=== PATIENT | female | born 1980 | race African-American/Black ===

== ENCOUNTER 2020-12-22 01:06 | Emergency (ER) | payer SELFPAY ==
--- OUTSIDE RECORDS SUMMARY | 2020-12-22 01:08 | XMS REPORT | Continuity of Care Document ---
:1980 Author Organization [facility] t Address [address] [place] [address] Care Team Providers Name Role Phone Doctor Unassigned, Name Attending Clinician Unavailable Problems This patient has no known problems. Allergies, Adverse Reactions, Alerts This patient has no known allergies or adverse reactions. Medications This patient has no known medications. Procedures This patient has no known procedures. Encounters Start End Encounter Admission Attending Care Care Encounter Source Date/Time Date/Time Type Type Clinicians Facility Department ID 2018-11-05 2018-11-05 Orders Doctor JACQUELYN [id number] 00:00:00 00:00:00 Only UnassignedTAYLA [id number] [place] [facility] [id number] Results This patient has no known results.
[2020-12-22 06:45] LABS: Absolute Lymphocytes (CBC) 2.6 K/uL (0.7-4.9); Basophils % 0.7 % (0-1.3); Hematocrit 26.6 % (36.0-45.0); Lymphocytes % 26.8 % (15.3-44.8); MPV 7.7 fL (7.6-11.3); RBC Red Blood Cell Count 3.58 M/uL (3.86-4.86)
[2020-12-22 06:55] LABS: Protime INR 0.97
[2020-12-22 07:06] LABS: Albumin 3.1 g/dL (3.4-5.0); Bilirubin Direct 0.1 mg/dL (0-0.2); Bilirubin Total 0.5 mg/dL (0.2-1.0); Protein, Total 7.8 g/dL (6.4-8.2)
--- NOTE | 2020-12-22 09:42 | RAD REPORT ---
EXAM DESCRIPTION: CT - Abdomen Pelvis W Contrast - 12/22/2020 9:11 am CLINICAL HISTORY: Abdominal pain COMPARISON: none. TECHNIQUE: Computed axial tomography of the abdomen pelvis was obtained. 100 cc Isovue-300 was admin istered intravenously. Oral contrast was not requested which limits evaluation of bowel. All CT scans are performed using dose optimization technique as appropriate and may include automated exposure control or mA/KV adjustment according to patient size. FINDINGS: The liver lies predominantly within the left abdomen. The stomach lies within the right ab domen. The liver is enlarged with diffuse fatty infiltration. Within the left lobe of the liver which mostly lies within the right abdomen is a low density area measuring approximately 17 x 8 x 9 (cc by AP by trans) centimeters. It extends to periphery of the liver. There is no subcapsular hematoma. No hemoperitoneum is noted. The pancreas, adrenals and kidneys appear unremarkable. 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 There are round nodules within the right upper quadrant measuri ng up to 2 centimeters probably represent splenosis 4.2 centimeter right ovarian cyst. No evidence of diverticulitis. Varices are present within the anterior subcutaneous. Azygos continuation of the IVC is present. A filter has been placed into the expected location of the IVC and below the level the renal veins. The IVC is in very small venous structure. IMPRESSION: The liver lies within predominantly the left abdomen. The stomach lies within the right abdomen. The the heart lies mostly within the left chest. 17 x 8 x 9 centimeter low-density area within the liver probably a laceration. Less likely of this re presents unusual appearing focal fatty infiltration. No subcapsular hematoma. No hemoperitoneum Remainder of the liver demonstrates fatty infiltration.
[2020-12-22 09:59] LABS: Hematocrit 26.2 % (36.0-45.0)
[2020-12-22] MEDS ORDERED: NA CHLORIDE 0.9% 1,000 ML ONE (10:01)
[2020-12-22] MEDS ORDERED: INSULIN -REGULAR HUMAN 50 UNIT/0.5 ML ML ONE (10:21)
--- NOTE | 2020-12-22 10:26 | RAD REPORT ---
EXAM DESCRIPTION: USExtrem Venous W Compress Bil12/22/2020 4:02 am CLINICAL HISTORY: Leg pain COMPARISON: none FINDINGS: The right common femoral, superficial femoral, popliteal and posterior tibial veins are c ompressible and demonstrate augmentation. Doppler demonstrates good flow. Echogenic material is present within left common femoral vein. The vein is partially compressible. Left superficial femoral, left popliteal left posterior tibial veins are patent. IMPRESSION: Thrombus within the left common femoral vein which appears subacute
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
[2020-12-22 12:17] VITALS: TEMP 97
[2020-12-22 12:23] VITALS: BP 171/90; O2SAT 99
== END 2020-12-22 12:09 | disposition short-term general hospital (02) ==
LOC: ER 01:06
DX: S36.113A Laceration of liver, unspecified degree, initial encounter (principal); I82.4Z2 Acute embolism and thrombosis of unspecified deep veins of left distal lower extremity; D64.9 Anemia, unspecified; V49.40XA Driver injured in collision with unspecified motor vehicles in traffic accident, initial encounter
CPT/HCPCS: 36415; 74177; 80048; 80076; 82947; 84703; 85014; 85018; 85025; 85610; 85730; 86850; 86900; 86901; 93970; 96361; 96374; 99285; J7030; Q9967

== ENCOUNTER 2021-03-25 01:11 | Emergency (ER) | payer SELFPAY ==
--- OUTSIDE RECORDS SUMMARY | 2021-03-25 01:14 | XMS REPORT | Continuity of Care Document ---
:1980 Author Organization [facility] t Address [address] [place] [address] Dr. Valles [address] [place] [address] Care Team Providers Name Role Phone Doctor [...] Date/Time Type Type Clinicians Facility Department ID 2020-12-22 2020-12-22 Emergency E [facility] MARIANNA [address] [facility] 12:11:00 12:11:00 2018-11-05 2018-11-05 Orders Doctor VALLADARES [id number] 00:00:00 00:00:00 Only Unassigned, TAYLA [id number] [place] [facility] [id number] Results This patient has no known results.
[2021-03-25 04:14] LABS: Urine Blood 3+ (Negative); Urine Glucose Negative (Negative); Urine Protein Trace (Negative)
[2021-03-25] MEDS ORDERED: ONDANSETRON 4 MG/2 ML VIAL ONE (04:44)
[2021-03-25] MEDS ORDERED: MORPHINE 2 MG/ML SYR ONE (04:44)
[2021-03-25] MEDS ORDERED: NA CHLORIDE 0.9% 1,000 ML ONE (04:44)
[2021-03-25 04:48] LABS: Absolute Lymphocytes (CBC) 3.3 K/uL (0.7-4.9); Basophils % 0.7 % (0-1.3); Hematocrit 28.1 % (36.0-45.0); Lymphocytes % 25.7 % (15.3-44.8); RBC Red Blood Cell Count 4.25 M/uL (3.86-4.86)
[2021-03-25 04:51] LABS: Protime INR 1.02
[2021-03-25 05:01] LABS: ALT/SGPT 40 U/L (12-78); AST/SGOT 29 U/L (15-37); Albumin 3.4 g/dL (3.4-5.0); Alkaline Phosphatase 155 U/L (45-117); BUN Blood Urea Nitrogen 16 mg/dL (7-18); Bicarbonate 26 mmol/L (21-32); Bilirubin Direct < 0.1 mg/dL (0-0.2); Bilirubin Total 0.3 mg/dL (0.2-1.0); Glucose Level 86 mg/dL (74-106); Lipase 56 U/L (73-393); Magnesium 1.9 mg/dL (1.8-2.4); NT PRO-BNP 64 pg/mL (<125); Potassium 3.6 mmol/L (3.5-5.1); Protein, Total 8.9 g/dL (6.4-8.2); Sodium Level 136 mmol/L (136-145); Troponin (Emerg Dept Use Only) < 0.02 ng/mL (0.0-0.045)
[2021-03-25] MEDS ORDERED: FENTANYL CITR 100 MCG/2 ML ONE (06:55)
[2021-03-25 07:09] LABS: Anisocytosis 1+; Blood Morphology Comment NOTED (NOT SEEN); Hypochromasia 1+; Platelet Estimate INCR; Poikilocytosis SLIGHT; Target Cells FEW
--- NOTE | 2021-03-25 07:58 | EKG ---
Test Date: 2021-03-25 Test Time: 04:28:44 [place] Worker: VALENTINO MEASUREMENT RESULTS: Intervals: Rate: 71 OH: 172 QRSD: 82 QT: 382 QTc: 415 [place]: P: 57 OH: 172 QRS: 67 T: 62 INTERPRETIVE STATEMENTS: Normal sinus rhythm Normal ECG No previous ECG available for comparison Electronically Signed On 03-25-21 07:57:28 CDT by oRb Mclean
--- NOTE | 2021-03-25 08:00 | RAD REPORT ---
EXAM DESCRIPTION: RAD - Chest Single View - 03/25/2021 3:09 am CLINICAL HISTORY: ABDOMINAL DISTENTION COMPARISON: None TECHNIQUE: AP portable chest image was obtained 03/25/2021 3:09 am . FINDINGS: Lungs are clear. Mild cardiomegaly is present without vascular engorgement. No measurable pleural effusion and no pneumothorax. No acute bony abnormality seen. No acute aortic findings suspec justin. IMPRESSION: No acute lung parenchymal process seen. Cardiomegaly without other findings of failure or volume overload.
[2021-03-25 08:48] LABS: White Blood Cell Scan OK (OK)
--- NOTE | 2021-03-25 14:29 | RAD REPORT ---
EXAM DESCRIPTION: CT - Abdomen Pelvis W Contrast - 03/25/2021 6:28 am CLINICAL HISTORY: The patient is 40 years old and is Female; ABD PAIN TECHNIQUE: Axial computed tomography images of the abdomen and pelvis with intravenous contrast. S agittal and coronal reformatted images were created and reviewed. This CT exam was performed using one or more of the following dose reduction techniques: automated exposure control, adjustment of t he mA and/or kV according to patient size, and/or use of iterative reconstruction technique. COMPARISON: CT of the abdomen and pelvis December 22, 2020 FINDINGS: LUNG BASES: Unremarkable. No mass. No consolidation. ABDOMEN: LIVER: The liver is midline. The liver is enlarged and fatty with areas of geographic fat atten uation. GALLBLADDER AND BILE DUCTS: No calcified stones. No ductal dilation. PANCREAS: No ductal dilation. No mass. SPLEEN: Multiple splenules are present within the right upper quadrant. ADRENALS: Unremarkable. No mass. KIDNEYS AND URETERS: Unremarkable. The kidneys enhance symmetrically. No obstructing renal or ure teral calculus is seen. No hydronephrosis or hydroureter. No perinephric fluid or stranding. STOMACH AND BOWEL: The stomach is within the right upper quadrant. The small bowel is relativel y normal in caliber. A moderate amount stool is present throughout colon. There is no bowel obstructi on. PELVIS: APPENDIX: The appendix is normal in caliber without surrounding inflammation. BLADDER: The bladder is nearly empty. REPRODUCTIVE: Unremarkable as visualized. ABDOMEN and PELVIS: INTRAPERITONEAL SPACE: Unremarkable. No free air. No significant fluid collection. BONES/JOINTS: No acute fracture. SOFT TISSUES: The soft tissues are normal. VASCULATURE: An infrarenal IVC filter is in place. A retroaortic left vein is noted. Azygous continuation of the IVC is noted. No abdominal aortic aneurysm. LYMPH NODES: Unremarkable. No enlarged lymph nodes. IMPRESSION: 1. No acute findings on this contrasted CT of the abdomen and pelvis to explain the pa tient's symptoms. 2. Chronic findings as detailed above. Electronically signed by: Giuliana Puente MD 03/25/2021 6:06 AM CDT Due to temporary technical issues with the PACS/Fluency reporting system, reports are being signed by the in house radiologists without review as a courtesy to insure prompt reporting. The interpreting radiologist is fully responsible for the content of the report.
--- NOTE | 2021-03-25 17:58 | ER ---
Nurse's Notes [facility] Name: Yair Tran Age: 40 yrs Sex: Female : 1980 Arrival Date: 03/25/2021 Time: 01:14 Bed 5 Private MD: Diagnosis: Other abdominal pain-left side;Nausea;Anemia, unspecified Presentation: 03/25 01:51 Chief complaint: Patient states: LLQ pain that started at 3 PM, denies burning with em urination, reports nausea but no vomiting. Coronavirus screen: Client denies travel out of the [place] in the last 14 days. Ebola Screen: Patient negative for fever greater than or equal to 101.5 degrees Fahrenheit, and additional compatible Ebola Virus Disease symptoms Patient denies exposure to infectious person. Patient denies travel to an Ebola-affected area in the 21 days before illness onset. No symptoms or risks identified at this time. Initial Sepsis Screen: Does the patient meet any 2 criteria? HR > 90 bpm. No. Patient's initial sepsis screen is negative. Does the patient have a suspected source of infection? No. Patient's initial sepsis screen is negative. Risk Assessment: Do you want to hurt yourself or someone else? Patient reports no desire to harm self or others. Onset of symptoms was March 25, 2021. 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 - Social history:: Smoking status: Patient denies any tobacco usage or history of. Screenin:33 Abuse screen: Denies threats or abuse. Nutritional screening: No deficits noted. ea Tuberculosis screening: No symptoms or risk factors identified. Fall Risk IV access (20 points). Assessment: 04:20 General: Appears uncomfortable, Behavior is appropriate for age. Pain: Complains of ea pain in left upper quadrant. Neuro: Level of Consciousness is awake, alert, obeys commands, Oriented to person, place, time. Respiratory: Airway is patent Respiratory effort is even, unlabored, Respiratory pattern is regular, symmetrical. Derm: Skin is pink, warm \T\ dry. 04:32 Reassessment: Patient and/or family updated on plan of care and expected duration. Pain ea level reassessed. Patient is alert, oriented x 3, equal unlabored respirations, skin warm/dry/pink. Pt taken to CT. 07:30 Reassessment: Patient appears in no apparent distress at this time. Patient and/or ph family updated on plan of care and expected duration. Pain level reassessed. Patient is alert, oriented x 3, equal unlabored respirations, skin warm/dry/pink. 09:13 Reassessment: Patient appears in no apparent distress at this time. Patient and/or ph family updated on plan of care and expected duration. Pain level reassessed. Patient is alert, oriented x 3, equal unlabored respirations, skin warm/dry/pink. Vital Signs: 01:51 BP 174 / 98; Pulse 97; Resp 16; Temp 98.5; Pulse Ox 99% on R/A; Weight 190.51 kg; em Height 5 ft. 9 in. (175.26 cm); Pain 10/10; 07:48 BP 181 / 87; Pulse 75; Resp 16; Pulse Ox 99% ; sv 09:00 BP 167 / 100; Pulse 76; Resp 18; Pulse Ox 98% on R/A; ph 01:51 Body Mass Index 62.02 (190.51 kg, 175.26 cm) em ED Course: 01:14 Patient arrived in ED. es 01:52 Triage completed. em 01:52 Arm band placed on. em 02:54 Garrett Nunes MD is Attending Physician. [facility] 03:09 XRAY Chest (1 view) In Process Unspecified. EDMS 03:43 Zoya Paula, RN is Primary Nurse. bs2 04:15 Inserted saline lock: 22 gauge in left forearm, using aseptic technique. Blood ds4 collected. 04:20 Patient has correct armband on for positive identification. Bed in low position. Call ea light in reach. 04:48 CT Abd/Pelvis - IV Contrast Only In Process Unspecified. EDMS 05:30 CBC Smear Scan Sent. bs2 05:30 Urine --Ancillary Sent. bs2 05:30 Urine --Ancillary (enter results) Sent. bs2 05:30 CBC with Automated Diff Sent. bs2 05:31 Basic Metabolic Panel Sent. bs2 05:31 CBC with Diff Sent. bs2 06:16 Garrett Lino PA is PHCP. cp 06:53 Primary Nurse role handed off by Zoya Paula RN mw2 07:10 Dyan Fernández RN is Primary Nurse. ph 09:13 Augustin Massey MD is Referral Physician. cp Administered Medications: 04:31 Drug: NS 0.9% 500 ml Route: IV; Rate: bolus; Site: right antecubital; ea 09:00 Follow up: Response: No adverse reaction; IV Status: Completed infusion ph 04:31 Drug: NS 0.9% 1000 ml Route: IV; Rate: 125 ml/hr; Site: right antecubital; ea 09:30 Follow up: Response: No adverse reaction; IV Status: Completed infusion ph 04:31 Drug: morphine 2 mg Route: IVP; Site: right antecubital; ea 05:30 Follow up: Response: No adverse reaction bs2 04:31 Drug: Zofran (Ondansetron) 4 mg Route: IVP; Site: right antecubital; ea 05:30 Follow up: Response: No adverse reaction bs2 06:39 Drug: fentaNYL (PF) 25 mcg Route: IVP; Site: right antecubital; bs2 07:15 Follow up: Response: No adverse reaction ph Outcome: 09:14 Discharge ordered by . cp 09:41 Patient left the ED. Signatures: Dispatcher [employer] Nancy Alegria RN RN sv Anderson, Corey, MD MD cha Salyer, Edna es Munoz, Edgar RN Ivis Mcmillan RN RN Law Toscano ds4 Dyan Fernández RN RN Garrett Lino PA PA cp Antunez, Elena, RN RN ea Westbrook, MyKena mw2 Zoya Paula RN RN bs2
--- NOTE | 2021-03-25 17:58 | EDPHYS ---
Physician Documentation [facility] Name: Yair Tran Age: 40 yrs Sex: Female : 1980 Arrival Date: 03/25/2021 Time: 01:14 Bed 5 Private MD: ED Physician Garrett Nunes HPI: 03/25 03:09 This 40 yrs old Black Female presents to ER via Ambulatory with complaints of Abdominal sophia Pain, Nausea. 03:09 The patient presents to the emergency department with nausea, vomiting, abdominal pain, sophia of the left upper quadrant. Onset: The symptoms/episode began/occurred yesterday. Possible causes: unknown. The symptoms are aggravated by nothing. The symptoms are alleviated by nothing. Associated signs and symptoms: The patient has no apparent associated signs or symptoms. Severity of symptoms: At their worst the symptoms were moderate in the emergency department the symptoms are unchanged. The patient has not experienced similar symptoms in the past. 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 - Social history:: Smoking status: Patient denies any tobacco usage or history of. ROS: 03:10 Constitutional: Negative for fever, chills, and weight loss, Eyes: Negative for injury, sophia pain, redness, and discharge, ENT: Negative for injury, pain, and discharge, Neck: Negative for injury, pain, and swelling, Cardiovascular: Negative for chest pain, palpitations, and edema, Respiratory: Negative for shortness of breath, cough, wheezing, and pleuritic chest pain, Back: Negative for injury and pain, : Negative for injury, bleeding, discharge, and swelling, MS/Extremity: Negative for injury and deformity, Skin: Negative for injury, rash, and discoloration, Neuro: Negative for headache, weakness, numbness, tingling, and seizure, Psych: Negative for depression, anxiety, suicide ideation, homicidal ideation, and hallucinations, Allergy/Immunology: Negative for hives, rash, and allergies, Endocrine: Negative for neck swelling, polydipsia, polyuria, polyphagia, and marked weight changes, Hematologic/Lymphatic: Negative for swollen nodes, abnormal bleeding, and unusual bruising. 03:10 Abdomen/GI: Positive for abdominal pain, of the left upper quadrant. Exam: 03:10 Constitutional: This is a well developed, well nourished patient who is awake, alert, sophia and in no acute distress. Head/Face: Normocephalic, atraumatic. Eyes: Pupils equal round and reactive to light, extra-ocular motions intact. Lids and lashes normal. Conjunctiva and sclera are non-icteric and not injected. Cornea within normal limits. Periorbital areas with no swelling, redness, or edema. ENT: Nares patent. No nasal discharge, no septal abnormalities noted. Tympanic membranes are normal and external auditory canals are clear. Oropharynx with no redness, swelling, or masses, exudates, or evidence of obstruction, uvula midline. Mucous membranes moist. Neck: Trachea midline, no thyromegaly or masses palpated, and no cervical lymphadenopathy. Supple, full range of motion without nuchal rigidity, or vertebral point tenderness. No Meningismus. Chest/axilla: Normal chest wall appearance and motion. Nontender with no deformity. No lesions are appreciated. Cardiovascular: Regular rate and rhythm with a normal S1 and S2. No gallops, murmurs, or rubs. Normal PMI, no JVD. No pulse deficits. Respiratory: Lungs have equal breath sounds bilaterally, clear to auscultation and percussion. No rales, rhonchi or wheezes noted. No increased work of breathing, no retractions or nasal flaring. Back: No spinal tenderness. No costovertebral tenderness. Full range of motion. Skin: Warm, dry with normal turgor. Normal color with no rashes, no lesions, and no evidence of cellulitis. MS/ Extremity: Pulses equal, no cyanosis. Neurovascular intact. Full, normal range of motion. Neuro: Awake and alert, GCS 15, oriented to person, place, time, and situation. Cranial nerves II-XII grossly intact. Motor strength 5/5 in all extremities. Sensory grossly intact. Cerebellar exam normal. Normal gait. Psych: Awake, alert, with orientation to person, place and time. Behavior, mood, and affect are within normal limits. 03:10 Abdomen/GI: Inspection: distension, that is moderate, Bowel sounds: normal, Palpation: moderate abdominal tenderness, in the left upper quadrant, Liver: no appreciated palpable abnormalities, Hernia: not appreciated. 04:38 ECG was reviewed by the Attending Physician. [facility] Vital Signs: 01:51 BP 174 / 98; Pulse 97; Resp 16; Temp 98.5; Pulse Ox 99% on R/A; Weight 190.51 kg; em Height 5 ft. 9 in. (175.26 cm); Pain 10/10; 07:48 BP 181 / 87; Pulse 75; Resp 16; Pulse Ox 99% ; sv 09:00 BP 167 / 100; Pulse 76; Resp 18; Pulse Ox 98% on R/A; ph 01:51 Body Mass Index 62.02 (190.51 kg, 175.26 cm) em MDM: 02:54 Patient medically screened. [facility] 03:10 Differential diagnosis: Nonspecific abd pain, gastritis, cholecystitis, pancreatitis, sophia diverticulitis, gastroenteritis, Cholelithiasis Inflammatory Bowel Disease Peptic Ulcer Ureterolithiasis. Data reviewed: vital signs, nurses notes, lab test result(s), EKG, radiologic studies, CT scan, plain films. Data interpreted: property assessment monitor: rate is 97 beats/min, rhythm is regular, Pulse oximetry: on room air is 99 %. Test interpretation: by ED physician or midlevel provider: ECG, plain radiologic studies. Counseling: I had a detailed discussion with the patient and/or guardian regarding: the historical points, exam findings, and any diagnostic results supporting the discharge/admit diagnosis, lab results, radiology results. 03/25 02:56 Order name: Basic Metabolic Panel [facility] 03/25 02:56 Order name: CBC with Diff [facility] 03/25 02:56 Order name: LFT's; Complete Time: 05:12 [facility] 03/25 07:03 Interpretation: Normal except: ALK 155; TP 8.9; GLOB 5.5; A/G 0.6. cp 03/25 02:56 Order name: Magnesium; Complete Time: 05:12 [facility] 03/25 07:23 Interpretation: Within normal limits: MG 1.9. cp 03/25 02:56 Order name: NT PRO-BNP; Complete Time: 05:12 [facility] 03/25 02:56 Order name: PT-INR; Complete Time: 05:12 [facility] 03/25 02:56 Order name: Troponin (emerg Dept Use Only); Complete Time: 05:12 [facility] 03/25 07:41 Interpretation: Within normal limits: TROPED < 0.02. 03/25 02:56 Order name: Lipase; Complete Time: 05:12 [facility] 03/25 07:04 Interpretation: Abnormal: LIP 56. 03/25 02:56 Order name: Urine Culture [facility] 03/25 02:56 Order name: Basic Metabolic Panel; Complete Time: 05:12 [facility] 03/25 07:05 Interpretation: Normal except: GFR 71. 03/25 02:56 Order name: CBC with Automated Diff; Complete Time: 09:02 [facility] 03/25 07:04 Interpretation: Normal except: WBC 12.70; HGB 8.7; HCT 28.1; MCV 66.0; MCH 20.4; MCHC cp 30.8; PLT 485; RDW 18.7; MPV 7.0; NEUT A 8.2. 03/25 04:13 Order name: Urine Dipstick-Ancillary; Complete Time: 04:44 [facility] 03/25 07:05 Interpretation: Normal except: UBLD 3+; UPROT Trace. 03/25 04:18 Order name: Urine --Ancillary (enter results) ds4 03/25 04:18 Order name: Urine --Ancillary; Complete Time: 07:03 [facility] 03/25 02:56 Order name: XRAY Chest (1 view); Complete Time: 08:05 [facility] 03/25 08:05 Interpretation: Report reviewed. 03/25 02:56 Order name: EKG; Complete Time: 02:57 [facility] 03/25 02:56 Order name: Cardiac monitoring; Complete Time: 04:31 [facility] 03/25 02:56 Order name: EKG - Nurse/Tech; Complete Time: 04:31 [facility] 03/25 02:56 Order name: IV Saline Lock; Complete Time: 04:17 [facility] 03/25 02:56 Order name: Labs collected and sent; Complete Time: 04:17 [facility] 03/25 02:56 Order name: O2 Per Protocol; Complete Time: 04:17 [facility] 03/25 02:56 Order name: O2 Sat Monitoring; Complete Time: 04:17 [facility] 03/25 02:56 Order name: CT Abd/Pelvis - IV Contrast Only [facility] 03/25 04:52 Order name: CBC Smear Scan; Complete Time: 09:02 [facility] 03/25 07:22 Interpretation: Reviewed. 03/25 06:36 Order name: CREATININE WHOLE BLOOD; Complete Time: 07:03 [facility] 03/25 02:56 Order name: Urine Dipstick-Ancillary (obtain specimen); Complete Time: 04:17 sophia 03/25 02:56 Order name: Urine Test (obtain specimen); Complete Time: 04:17 sophia EC:38 Rate is 71 beats/min. Rhythm is regular. QRS [place] is Normal. VT interval is normal. QRS sophia interval is normal. QT interval is normal. No Q waves. T waves are Normal. No ST changes noted. Clinical impression: Normal ECG and No evidence of ischemia. Interpreted by me. Reviewed by me. Administered Medications: 04:31 Drug: NS 0.9% 500 ml Route: IV; Rate: bolus; Site: right antecubital; ea 09:00 Follow up: Response: No adverse reaction; IV Status: Completed infusion ph 04:31 Drug: NS 0.9% 1000 ml Route: IV; Rate: 125 ml/hr; Site: right antecubital; ea 09:30 Follow up: Response: No adverse reaction; IV Status: Completed infusion ph 04:31 Drug: morphine 2 mg Route: IVP; Site: right antecubital; ea 05:30 Follow up: Response: No adverse reaction bs2 04:31 Drug: Zofran (Ondansetron) 4 mg Route: IVP; Site: right antecubital; ea 05:30 Follow up: Response: No adverse reaction bs2 06:39 Drug: fentaNYL (PF) 25 mcg Route: IVP; Site: right antecubital; bs2 07:15 Follow up: Response: No adverse reaction ph Disposition Summary: 03/25/21 09:14 Discharge Ordered Location: Home cp Problem: new cp Symptoms: have improved cp Condition: Stable cp Diagnosis - Other abdominal pain - left side cp - Nausea cp - Anemia, unspecified cp Followup: cp - With: Augustin Massey MD - When: 2 - 3 days - Reason: Recheck today's complaints Discharge Instructions: - Discharge Summary Sheet cp - Abdominal Pain, Adult cp - Anemia cp - Nausea, Adult cp Forms: - Medication Reconciliation Form cp - Thank You Letter cp - Antibiotic Education cp - Prescription Opioid Use cp - Work release form ph Prescriptions: - Zofran 4 mg Oral Tablet - take 1 tablet by ORAL route every 12 hours As needed; 20 tablet; Refills: 0, cp Product Selection Permitted - Cipro 500 mg Oral Tablet - take 1 tablet by ORAL route every 12 hours for 10 days; 20 tablet; Refills: 0, cp Product Selection Permitted - Metronidazole 500 mg Oral Tablet - take 1 tablet by ORAL route every 8 hours; 30 tablet; Refills: 0, Product cp Selection Permitted - dicyclomine 20 mg Oral Tablet - take 1 tablet by ORAL route 4 times per day; 30 tablet; Refills: 0, Product cp Selection Permitted Signatures: Dispatcher [employer] Garrett Covarrubias MD MD cha Munoz, Edgar, RN RN Garrett Kaur, Isabela Scanlon cp RN RN Zoya José RN RN bs2 Dyan Fernández RN ph
[2021-03-26 20:07] VITALS: TEMP 98.5
[2021-03-26 20:10] VITALS: BP 167/100; O2SAT 98
== END 2021-03-25 09:41 | disposition home or self-care (01) ==
LOC: ER 01:11
DX: R10.12 Left upper quadrant pain (principal); R11.0 Nausea; D64.9 Anemia, unspecified; Z86.718 Personal history of other venous thrombosis and embolism
CPT/HCPCS: 36415; 71045; 74177; 80048; 80076; 81003; 81025; 82565; 83690; 83735; 83880; 84484; 85025; 85610; 87086; 87088; 93005; J2270; J2405; J3010; J7030; Q9967

== ENCOUNTER 2021-03-27 15:21 | Inpatient (IN) | payer SELFPAY ==
--- OUTSIDE RECORDS SUMMARY | 2021-03-27 15:23 | XMS REPORT | Continuity of Care Document ---
:1980 Author Organization [facility] t Address [address] [place] [address] [address] [place] [address] Care Team Providers Name Role Phone Doctor [...] Facility Department ID 2020-12-22 2020-12-22 Emergency E [facility] [address] [facility] 12:11:00 12:11:00 2018-11-05 2018-11-05 Orders Doctor VALLADARES [id number] 10 00:00:00 00:00:00 Only Unassigned, TAYLA [id number] [place] [facility] [id number] Results This patient has no known results.
[2021-03-27 20:19] LABS: Basophils % 0.6 % (0-1.3); Hematocrit 29.3 % (36.0-45.0); Lymphocytes % 14.2 % (15.3-44.8); MPV 6.9 fL (7.6-11.3); RBC Red Blood Cell Count 4.47 M/uL (3.86-4.86)
[2021-03-27 20:37] LABS: Bilirubin Direct 0.2 mg/dL (0-0.2); Bilirubin Total 0.4 mg/dL (0.2-1.0); Potassium 3.5 mmol/L (3.5-5.1); Protein, Total 8.6 g/dL (6.4-8.2)
[2021-03-27 20:56] LABS: Blood Morphology Comment NOTED (NOT SEEN); Hypochromasia 2+; Platelet Estimate INCR; White Blood Cell Scan OK (OK)
[2021-03-27] MEDS ORDERED: ONDANSETRON 4 MG/2 ML VIAL ONE (21:07)
[2021-03-27] MEDS ORDERED: NA CHLORIDE 0.9% 1,000 ML ONE (21:07)
[2021-03-27] MEDS ORDERED: MORPHINE 4 MG/ML SYR ONE ×2 (21:07→22:40)
--- NOTE | 2021-03-27 21:25 | RAD REPORT ---
EXAM DESCRIPTION: CTAbdomen Pelvis W Contrast - 03/27/2021 9:09 pm CLINICAL HISTORY: Abdominal pain. ABD PAIN COMPARISON: <Comparisons> TECHNIQUE: Biphasic CT imaging of the abdomen and pelvis was performed with 100 ml non-ionic IV cont rast. All CT scans are performed using dose optimization technique as appropriate and may include automated exposure control or mA/KV adjustment according to patient size. FINDINGS: The lung bases are clear. Hepatic steatosis with areas of fatty sparing. Prior splenectomy with splenosis. No focal renal sandhya s. IVC filter noted. There is a small volume of free fluid large abdominal wall venous collateral in the left rectus sheath but increased adjacent fluid. Recanalized umbilical vein. Azygous continuation of the IVC is noted. No bowel obstruction. No fracture. No suspicious bony findings. IMPRESSION: Increased fullness in the left rectus sheath concerning for the development of a rectus sheath hematoma. There is also increased simple appearing free fluid in the abdomen. 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
--- NOTE | 2021-03-27 21:49 | EDPHYS ---
Physician Documentation [facility] Name: Yair Tran Age: 40 yrs Sex: Female : 1980 Arrival Date: 03/27/2021 Time: 15:23 Bed 6 Private MD: FIDEL Physician Garrett Nunes HPI: 03/27 21:27 This 40 yrs old Black Female presents to ER via Wheelchair with complaints of Abdominal kb Pain - diverticulitis flare. 21:27 The patient presents with abdominal pain in the left upper quadrant, in the left lower kb quadrant. Onset: The symptoms/episode began/occurred 3 day(s) ago. The symptoms do not radiate. Associated signs and symptoms: Pertinent positives: diarrhea, nausea. The symptoms are described as constant. Modifying factors: The symptoms are alleviated by nothing, the symptoms are aggravated by nothing. Severity of pain: At its worst the pain was moderate in the emergency department the pain is unchanged. The patient has not experienced similar symptoms in the past. The patient has not recently seen a physician. Pt reports left sided abd pain. States she was seen 2 days ago and diagnosed with diverticulitis. Pt has been taking prescribed antibiotics with no relief of pain. . Historical: - Allergies: 15:45 No Known Allergies; aa5 - PMHx: 15:45 DVT; aa5 - PSHx: 15:45 section; aa5 - Immunization history:: Client reports having NOT received the Covid vaccine. Flu vaccine is not up to date. - Social history:: Smoking status: Patient denies any tobacco usage or history of. ROS: 21:36 Constitutional: Negative for fever, chills, and weight loss. kb 21:36 Abdomen/GI: Positive for abdominal pain, nausea, diarrhea, Negative for vomiting. 21:36 All other systems are negative. Exam: 21:38 Head/Face: Normocephalic, atraumatic. ENT: Moist Mucous membranes Cardiovascular: kb Regular rate and rhythm with a normal S1 and S2. No gallops, murmurs, or rubs. No pulse deficits. Respiratory: Respirations even and unlabored. No increased work of breathing, no retractions or nasal flaring. Skin: Warm, dry with normal turgor. Normal color. MS/ Extremity: Pulses equal, no cyanosis. Neurovascular intact. Full, normal range of motion. Neuro: Awake and alert, GCS 15, oriented to person, place, time, and situation. Moves all extremities. Normal gait. Psych: Awake, alert, with orientation to person, place and time. Behavior, mood, and affect are within normal limits. 21:38 Constitutional: The patient appears alert, awake, uncomfortable. 21:38 Abdomen/GI: Inspection: scar(s), are noted in the suprapubic area, Bowel sounds: normal, Palpation: soft, in all quadrants, moderate abdominal tenderness, in the left upper quadrant and left lower quadrant. Vital Signs: 15:44 BP 156 / 102; Pulse 114; Resp 20 S; Temp 98.7(O); Pulse Ox 100% ; aa5 20:39 BP 165 / 94; Pulse 99; Resp 18; Pulse Ox 98% ; ea MDM: 19:53 Patient medically screened. kb 21:26 Data reviewed: vital signs, nurses notes. Data interpreted: Pulse oximetry: on room air kb is 98 %. Interpretation: normal. 21:40 Counseling: I had a detailed discussion with the patient and/or guardian regarding: the kb historical points, exam findings, and any diagnostic results supporting the discharge/admit diagnosis, lab results, radiology results, the need for further work-up and treatment in the hospital. Physician consultation: Richie Steven MD was contacted at 21:41, regarding consult, and will see patient in inpatient room. 21:48 Physician consultation: Mustapha BAZZI was contacted at 21:48, regarding admission, kb to the medical/surgical unit. patient's condition, and will see patient in ED. 03/27 19:48 Order name: Basic Metabolic Panel; Complete Time: 20:38 kb 03/27 19:48 Order name: CBC with Diff; Complete Time: 21:11 kb 03/27 19:48 Order name: Hepatic Function; Complete Time: 20:38 kb 03/27 19:48 Order name: Lipase; Complete Time: 20:38 kb 03/27 20:27 Order name: CBC Smear Scan; Complete Time: 21:11 EDNM 03/27 21:54 Order name: COVID-19 : Document "Date of Symptom Onset" if Symptomatic. tt3 03/27 21:54 Order name: CORONAVIRUS EDNM 03/27 23:18 Order name: SARS-COV-2 RT PCR EDNM 03/28 05:51 Order name: CBC with Automated Diff EDMS 03/28 06:06 Order name: Transferrin Sat/Iron Binding EDMS 03/28 06:06 Order name: Ferritin EDNM 03/28 06:15 Order name: Comprehensive Metabolic Panel EDMS 03/28 06:15 Order name: Magnesium EDMS 03/28 06:28 Order name: Sedimentation Rate, Westergren EDMS 03/27 19:48 Order name: IV Saline Lock; Complete Time: 20:10 kb 03/27 19:48 Order name: Labs collected and sent; Complete Time: 20:10 kb 03/27 20:37 Order name: CT Abd/Pelvis - IV Contrast Only; Complete Time: 21:30 kb 03/28 07:08 Order name: Procalcitonin EDNM 03/28 09:31 Order name: Diet Regular; Complete Time: 09:32 eb Administered Medications: 20:49 Drug: morphine 4 mg Route: IVP; Site: right forearm; ea 21:00 Follow up: Response: No adverse reaction ea 20:49 Drug: Zofran (Ondansetron) 4 mg Route: IVP; Site: right forearm; ea 21:00 Follow up: Response: No adverse reaction ea 20:49 Drug: NS 0.9% 1000 ml Route: IV; Rate: 1000 ml; Site: right forearm; ea 23:13 Follow up: Response: No adverse reaction; IV Status: Completed infusion; IV Intake: ea 1000ml 22:20 Drug: morphine 4 mg Route: IVP; Site: right forearm; ea 23:00 Follow up: Response: No adverse reaction; Marked relief of symptoms; Pain is decreased jb4 23:12 Drug: Zosyn (piperacillin-tazobactam) 3.375 grams Route: IVPB; Infused Over: 60 mins; ea Site: right forearm; 03/28 00:12 Follow up: Response: No adverse reaction; IV Status: Completed infusion; IV Intake: jb4 100ml Disposition: 16:04 Co-signature as Attending Physician, Garrett Nunes MD I agree with the assessment and sophia plan of care. Disposition Summary: 03/27/21 21:48 Hospitalization Ordered Hospitalization Status: Inpatient Admission kb Provider: Aden Sanders Condition: Stable kb Problem: new kb Symptoms: are unchanged kb Bed/Room Type: Standard kb Location: Telemetry/MedSurg (Inpatient)(03/28/21 12:11) dw Room Assignment: 204(03/28/21 12:11) dw Diagnosis - Rectus sheath hematoma kb - Elevated white blood cell count kb Forms: - Medication Reconciliation Form kb - SBAR form kb Signatures: Dispatcher [employer] EDSheron Hernandez FNP-C FNP-Ckb Woody, Diana RN RN Garrett Bernal MD MD cha Calderon, Audri RN RN aa5 Florence Hendrickson RN RN tl1 Isabela Schofield RN RN ea Bryson, James RN jb4 Corrections: (The following items were deleted from the chart) 03/27 22:41 21:48 Telemetry/MedSurg (Inpatient) kb tl1 22:41 21:48 kb tl1 03/28 12:11 03/27 22:41 [facility] ER HOLD tl1 dw 03/28 12:11 03/27 22:41 ERHOLD- tl1 dw
--- NOTE | 2021-03-27 21:49 | ER ---
Nurse's Notes [facility] Name: Yair Tran Age: 40 yrs Sex: Female : 1980 Arrival Date: 03/27/2021 Time: 15:23 Bed 6 Private MD: Diagnosis: Rectus sheath hematoma;Elevated white blood cell count Presentation: 03/27 15:44 Chief complaint: Patient states: was seen here 2 days ago and dx with diverticulitis, aa5 pt states "the pain is still bad and I think I am getting dehydrated now". Reports nausea, denies vomiting. Coronavirus screen: At this time, the client does not indicate any symptoms associated with coronavirus-19. Ebola Screen: Patient negative for fever greater than or equal to 101.5 degrees Fahrenheit, and additional compatible Ebola Virus Disease symptoms. Initial Sepsis Screen: Does the patient meet any 2 criteria? HR > 90 bpm. Does the patient have a suspected source of infection? Yes:. Risk Assessment: Do you want to hurt yourself or someone else? Patient reports no desire to harm self or others. Onset of symptoms was March 27, 2021. 15:44 Method Of Arrival: Wheelchair aa5 15:44 Acuity: MICHAEL 3 aa5 Historical: - Allergies: 15:45 No Known Allergies; aa5 - PMHx: 15:45 DVT; aa5 - PSHx: 15:45 section; aa5 - Immunization history:: Client reports having NOT received the Covid vaccine. Flu vaccine is not up to date. - Social history:: Smoking status: Patient denies any tobacco usage or history of. Screenin:05 Abuse screen: Denies threats or abuse. Nutritional screening: No deficits noted. ea Tuberculosis screening: No symptoms or risk factors identified. Fall Risk None identified. Assessment: 20:06 General: Appears in no apparent distress. Behavior is calm, cooperative, appropriate ea for age. Pain: Denies pain. Neuro: Level of Consciousness is awake, alert, obeys commands, Oriented to person, place, time. Respiratory: Airway is patent Respiratory effort is even, unlabored, Respiratory pattern is regular, symmetrical. Derm: Skin is pink, warm \\T\\ dry. 21:33 Reassessment: Patient and/or family updated on plan of care and expected duration. Pain ea level reassessed. Patient is alert, oriented x 3, equal unlabored respirations, skin warm/dry/pink. 22:12 Reassessment: Patient and/or family updated on plan of care and expected duration. Pain ea level reassessed. Patient is alert, oriented x 3, equal unlabored respirations, skin warm/dry/pink. Provider at bedside updating pt on plan of care. Vital Signs: 15:44 BP 156 / 102; Pulse 114; Resp 20 S; Temp 98.7(O); Pulse Ox 100% ; aa5 20:39 BP 165 / 94; Pulse 99; Resp 18; Pulse Ox 98% ; ea ED Course: 15:23 Patient arrived in ED. as 15:43 Arm band placed on. aa5 15:45 Triage completed. aa5 16:13 Garrett Lino PA is PHCP. cp 19:48 Sheron Feliciano FNP-C is PHCP. kb 19:48 Garrett Nunes MD is Attending Physician. kb 20:05 Isabela Schofield, RN is Primary Nurse. ea 20:05 Patient has correct armband on for positive identification. Bed in low position. Call ea light in reach. Side rails up X2. 20:05 Inserted saline lock: 20 gauge in right forearm, using aseptic technique. ea 21:09 CT Abd/Pelvis - IV Contrast Only In Process Unspecified. EDMS 21:48 Aden Sanders is Hospitalizing Provider. kb 22:12 No provider procedures requiring assistance completed. Patient admitted, IV remains in ea place. 03/28 10:23 Primary Nurse role handed off by Isabela Schofield, FIDEL sv 10:23 Deidre Sharma, FIDEL is Primary Nurse. sv Administered Medications: 03/27 20:49 Drug: morphine 4 mg Route: IVP; Site: right forearm; ea 21:00 Follow up: Response: No adverse reaction ea 20:49 Drug: Zofran (Ondansetron) 4 mg Route: IVP; Site: right forearm; ea 21:00 Follow up: Response: No adverse reaction ea 20:49 Drug: NS 0.9% 1000 ml Route: IV; Rate: 1000 ml; Site: right forearm; ea 23:13 Follow up: Response: No adverse reaction; IV Status: Completed infusion; IV Intake: ea 1000ml 22:20 Drug: morphine 4 mg Route: IVP; Site: right forearm; ea 23:00 Follow up: Response: No adverse reaction; Marked relief of symptoms; Pain is decreased jb4 23:12 Drug: Zosyn (piperacillin-tazobactam) 3.375 grams Route: IVPB; Infused Over: 60 mins; ea Site: right forearm; 03/28 00:12 Follow up: Response: No adverse reaction; IV Status: Completed infusion; IV Intake: jb4 100ml Intake: 03/27 23:13 IV: 1000ml; Total: 1000ml. ea 03/28 00:12 IV: 100ml; Total: 1100ml. jb4 Outcome: 03/27 21:48 Decision to Hospitalize by Provider. kb 03/28 13:16 Patient left the ED. hb Signatures: Dispatcher [employer] EDMS Sheron Feliciano, JLUIS SCHMIDT-Nancy Decker, RN RN Angela Alexander Audri RN RN aa5 Garrett Lino PA PA cp Baxter, Heather RN RN Christian Laurent RN RN jb4 Antunez, Elena, RN RN ea Corrections: (The following items were deleted from the chart) 03/27 15:45 15:44 Initial Sepsis Screen: Does the patient meet any 2 criteria? No. Patient's aa5 initial sepsis screen is negative. Does the patient have a suspected source of infection? No. Patient's initial sepsis screen is negative. aa5
--- NOTE | 2021-03-27 22:28 | P.HP ---
Certification for Inpatient Patient admitted to: Inpatient With expected LOS: >2 Midnights Patient will require the following post-hospital care: None Practitioner: I am a practitioner with admitting privileges, knowledge of patient current condition, hospital course, and medical plan of care. Services: Services provided to patient in accordance with Admission requirements found in Title 42 Section 412.3 of the Code of Federal Regulations Patient History Date of Service: 03/27/21 Reason for admission: Rectus sheath hematoma vs. abscess History of Present Illness: 40-year-old -Malaysian female with history of DVT status post IVC filter on chronic anticoagulation therapy presents emergency department for left lower quadrant abdominal pain. Patient was seen by ED provider 2 days prior for left lower quadrant pain, was discharged home on Cipro/Flagyl after CT scan was negative at that time. Patient with increasing pain over the course of last 48 hours. Patient reevaluated in the emergency department, labs significant for white blood cell count 20.9 with left shift hemoglobin 8.8 hematocrit 29.3, patient with chronic anemia CT scan abdomen pelvis demonstrates increased fullness in the left rectus sheath concerning for development of a rectus sheath hematoma versus abscess. ED provider consulted with general surgery who recommends n.p.o., admission with broad-spectrum antibiotics, hold Eliquis. 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 moist/pink, EOMI, Sclerae nonicteric Neck: Supple, 2+ carotid pulse no bruit, No LAD, Without JVD or thyroid abnorm ality Respiratory: Clear to auscultation bilaterally, Normal air movement Cardiovascular: Regular rate/rhythm, Normal S1 S2 Gastrointestinal: Normal bowel sounds, No tenderness Musculoskeletal: Tenderness (Moderate left upper quadrant, left lower quadrant abdominal tenderness without rebound or guarding) Integumentary: No rashes Neurological: Normal speech, Normal strength at 5/5 x4 extr, Normal tone, Normal affect Lymphatics: No axilla or inguinal lymphadenopathy - Studies Laboratory Data (last 24 hrs) 03/27/21 19:58: WBC 20.90 H* D, Hgb 8.8 L, Hct 29.3 L, Plt Count 564 H 03/27/21 19:58: Sodium 136, Potassium 3.5, BUN 9, Creatinine 1.02, Glucose 122 H, Total Bilirubin 0.4, AST 12 L, ALT 23, Alkaline Phosphatase 136 H, Lipase 26 L Assessment and Plan - Plan Assessment: Left-sided abdominal pain, leukocytosis secondary to rectus sheath hematoma versus abscess History of DVT status post IVC filter placement on chronic anticoagulation therapy Iron deficiency anemia Plan: Left-sided abdominal pain, leukocytosis secondary to rectus sheath hematoma vers us abscess: N.p.o., continue broad-spectrum IV antibiotics, surgery consulted, will hold patient's Eliquis continue with SCDs. As needed pain medications/antiemetics. Appreciate further input from general surgery. History of DVT status post IVC filter placement on chronic anticoagulation therapy: Hold Eliquis, continue with SCDs at this time. Iron deficiency anemia: Patient with history of KARLA, takes iron at home has had to have blood transfusion/iron infusion in the past. Will obtain KARLA labs. DVT PPX: SCDs Code status: Full Discharge Plan: Home Plan to discharge in: Greater than 2 days - Advance Directives Does patient have a Living Will: No Does patient have a Durable POA for Healthcare: No - Code Status/Comfort Care Code Status Assessed: Yes (Full code) Time Spent Managing Pts Care (In Minutes): 55
[2021-03-27] MEDS ORDERED: PIPERACIL/TAZO 3.375 GM VIAL IV ONE (22:40)
[2021-03-27] MEDS ORDERED: NA CHLORIDE 0.9% 100 ML ONE (22:41)
[2021-03-27] MEDS: NA CHLORIDE 0.9% 1,000 ML IV SCH (23:57)
[2021-03-27] MEDS ORDERED: MORPHINE 4 MG/ML SYR IV PRN (23:57)
[2021-03-28 01:08] VITALS: BMI 62.0
[2021-03-28] MEDS ORDERED: NA CHLORIDE 0.9% 1,000 ML ONE ×2 (01:16→11:26)
[2021-03-28] MEDS: MORPHINE 4 MG/ML SYR IV PRN ×4 (02:55→22:58)
[2021-03-28] MEDS: ACETAMINOPHEN 500 MG TAB PO PRN (04:18)
[2021-03-28] MEDS ORDERED: ACETAMINOPHEN 500 MG TAB ONE (04:37)
[2021-03-28 05:40] LABS: Absolute Lymphocytes (CBC) 2.8 K/uL (0.7-4.9); Basophils % 0.5 % (0-1.3); Hematocrit 25.8 % (36.0-45.0); Lymphocytes % 13.8 % (15.3-44.8); MPV 6.9 fL (7.6-11.3); RBC Red Blood Cell Count 3.91 M/uL (3.86-4.86)
[2021-03-28 05:51] LABS: ALT/SGPT 20 U/L (12-78); AST/SGOT 9 U/L (15-37); Albumin 2.7 g/dL (3.4-5.0); Alkaline Phosphatase 115 U/L (45-117); BUN Blood Urea Nitrogen 10 mg/dL (7-18); Bicarbonate 25 mmol/L (21-32); Bilirubin Total 0.4 mg/dL (0.2-1.0); Glucose Level 113 mg/dL (74-106); Magnesium 1.9 mg/dL (1.8-2.4); Potassium 3.6 mmol/L (3.5-5.1); Protein, Total 7.6 g/dL (6.4-8.2); Sodium Level 138 mmol/L (136-145)
[2021-03-28 06:06] LABS: Ferritin 14.3 ng/mL (8-388); Transferrin 247 mg/dL (200-360)
[2021-03-28] MEDS: PIPER/TAZO/NS 3.375gm 3.375 GM/100 ML BAG IVPB SCH ×2 (09:00→17:36)
[2021-03-28] MEDS ORDERED: PIPER/TAZO/NS 3.375gm 3.375 GM/100 ML BAG IVPB SCH (09:00)
[2021-03-28] MEDS: ONDANSETRON 4 MG/2 ML VIAL IV PRN (09:19)
[2021-03-28] MEDS ORDERED: ONDANSETRON 4 MG/2 ML VIAL ONE (09:37)
[2021-03-28] MEDS ORDERED: MORPHINE 4 MG/ML SYR ONE (09:37)
[2021-03-28] MEDS: NA CHLORIDE 0.9% 1,000 ML IV SCH (09:57)
--- NOTE | 2021-03-28 13:27 | CON ---
Date of Consultation: 03/27/2021 Reason For Consultation: Rectus sheath hematoma. History Of Present Illness: The patient is a 40-year-old female with a history of DVT with an IVC fi lter, on chronic anticoagulation therapy with Eliquis, presented 3 days ago with left lateral abdomin al wall pain, was seen by the emergency room, had a slight white count, and was treated with oral ant ibiotics and discharged from the ER; however, the patient had increasing pain over the next 2 days an d was admitted and had a white count of 20.9 and H and H was stable at 8.8 and 29.3. The rectus abdom inis had gotten slightly larger as far as the hematoma was concerned. There is no evidence of an abs cess at this time. Today, she is awake, alert. Pain is managed with parenteral pain management. No sore throat, runny nose, cough, headaches, or dizziness. No chest pain. No fever or chills. Review of Systems: Otherwise unremarkable. Past Medical History: DVT, following . Past Surgical History: x2 and IVC filter placement. Allergies: NONE. Social History: The patient used to smoke, does not smoke any more. Does not drink alcohol. Family History: Significant for diabetes in the mother. Physical Examination: Vital Signs: Her vitals are currently stable. Blood pressure is little elevated at 172/102. Her te mperature is now 100.6. General: She is awake, alert, and oriented x3. Head and Neck: Cranial nerves 2 through 12 are grossly within normal limits. No neck masses. No JV D. Throat clear. Neck supple. Chest: Clear. Heart: S1, S2. Abdomen: Soft, nondistended. Positive bowel sounds. In the left mid abdomen, there is tenderness o elias the rectus sheath. No peritonitis. Extremity: Adequately perfused. Nontender. Neuro: Nonfocal. Laboratory Data: White count is 20.1. H and H this morning are 7.8 and 25.8, platelets are 510. Ch emistry reviewed, procalcitonin is 0.08. CT of the abdomen and pelvis reviewed with the radiologist. It shows small volume of free fluid. Rule out abdominal wall venous collaterals in the left rectus sheath but increased adjacent fluid. Recannulized umbilical vein. Continuation of the IVC is noted . This is most consistent with hematoma. Assessment: Left rectus sheath hematoma. Recommendations: At this time, I do not think any intervention is needed. Parenteral pain managemen t, empiric antibiotics. The fluid has not coalesced into a drainable entity as of yet. Monitor the patient closely. If she clinically improves, she can be discharged in the next 24 to 48 hours. If s he does not improve, she may need intervention. /MODL Voice ID: [id number] Report ID: [id number]
--- NOTE | 2021-03-28 19:47 | P.PN ---
Subjective Date of Service: 03/28/21 Chief Complaint: Rectus sheath hematoma vs. abscess Patient complaining of pain in her mid abdomen. No fever. Physical Examination - Vital Signs Temperature: 98.7 F Blood Pressure: 136/74 Pulse: 100 Respirations: 18 Pulse Ox (%): 98 - Physical Exam General: Alert, In no apparent distress, Oriented x3, Obese HEENT: Mucous membr. moist/pink Neck: JVD not distended Respiratory: Clear to auscultation bilaterally, Normal air movement Cardiovascular: Regular rate/rhythm, Normal S1 S2 Gastrointestinal: Normal bowel sounds, Soft and benign, Non-distended, Tenderness (Mid-abdomen) Musculoskeletal: No swelling Integumentary: No rashes Neurological: Normal strength at 5/5 x4 extr - Studies Laboratory Data (last 24 hrs) 03/27/21 19:58: WBC 20.90 H* D, Hgb 8.8 L, Hct 29.3 L, Plt Count 564 H 03/27/21 19:58: Sodium 136, Potassium 3.5, BUN 9, Creatinine 1.02, Glucose 122 H, Total Bilirubin 0.4, AST 12 L, ALT 23, Alkaline Phosphatase 136 H, Lipase 26 L Assessment And Plan - Current Problems (Diagnosis) (1) Rectus sheath hematoma Current Visit: Yes Status: Acute (2) Leukocytosis Current Visit: Yes Status: Acute (3) History of DVT of lower extremity Current Visit: Yes Status: Acute (4) Morbid obesity due to excess calories Current Visit: Yes Status: Acute (5) Iron deficiency anemia Current Visit: Yes Status: Acute - Plan General surgery-Dr. Steven input appreciated. He recommend medical management has no drainable abscess at this time Continue IV antibiotics. Monitor CBC to follow leukocytosis. Pain management as needed. Monitor hemoglobin. Transfuse p.r.n. for hemoglobin less than 7. No report of melena or hematemesis. Eliquis is on hold.
[2021-03-29] MEDS: ACETAMINOPHEN 500 MG TAB PO PRN (00:53)
[2021-03-29] MEDS: PIPER/TAZO/NS 3.375gm 3.375 GM/100 ML BAG IVPB SCH ×3 (01:00→10:59)
[2021-03-29] MEDS: MORPHINE 4 MG/ML SYR IV PRN ×4 (04:59→21:39)
[2021-03-29 05:52] LABS: Basophils % 0.6 % (0-1.3); Hematocrit 24.5 % (36.0-45.0); Lymphocytes % 17.3 % (15.3-44.8); MPV 6.8 fL (7.6-11.3); RBC Red Blood Cell Count 3.73 M/uL (3.86-4.86)
[2021-03-29 06:23] LABS: Albumin 2.5 g/dL (3.4-5.0); Bilirubin Total 0.3 mg/dL (0.2-1.0); Magnesium 1.9 mg/dL (1.8-2.4); Potassium 3.9 mmol/L (3.5-5.1); Protein, Total 7.6 g/dL (6.4-8.2)
--- NOTE | 2021-03-29 08:49 | PN ---
Subjective: The patient is still having pain, but it is a little bit better. Objective: Vital Signs: Stable. She is afebrile. Abdomen: Shows tenderness in the left midquadrant. No peritonitis. Laboratory Data: H and H are stable. White count is coming down. Assessment: Rectus sheath hematoma. Recommendations: Continue IV antibiotics for the next 24 to 48 hours. Once the white count approach es normalization, then the patient could be discharged on oral antibiotics and probably restart antic oagulation if needed in 2 weeks. Follow with Hematology as an outpatient for further recommendations . Reconsult Surgery p.r.n. /MODL Voice ID: [id number] Report ID: [id number]
[2021-03-29] MEDS: NA CHLORIDE 0.9% 1,000 ML IV SCH ×2 (11:00→15:57)
--- NOTE | 2021-03-29 12:55 | P.PN ---
Subjective Date of Service: 03/29/21 Chief Complaint: Rectus sheath hematoma vs. abscess Patient still complaining of abdominal pain. She is tachycardia, blood pressure sometimes elevated. WBC count decreased only slightly No fever today. Physical Examination - Vital Signs Temperature: 99.1 F Blood Pressure: 153/70 Pulse: 92 Respirations: 20 Pulse Ox (%): 97 - Physical Exam General: In no apparent distress, Oriented x3, Obese Neck: JVD not distended Respiratory: Clear to auscultation bilaterally, Normal air movement Cardiovascular: Regular rate/rhythm, Normal S1 S2 Gastrointestinal: Soft and benign, Non-distended Musculoskeletal: No swelling Integumentary: No rashes, No erythema Neurological: Normal strength at 5/5 x4 extr Assessment And Plan - Current Problems (Diagnosis) (1) Rectus sheath hematoma Current Visit: Yes Status: Acute (2) Leukocytosis Current Visit: Yes Status: Acute (3) History of DVT of lower extremity Current Visit: Yes Status: Acute (4) Morbid obesity due to excess calories Current Visit: Yes Status: Acute (5) Iron deficiency anemia Current Visit: Yes Status: Acute (6) Sepsis Current Visit: Yes Status: Acute - Plan General surgery-Dr. Steven input appreciated. Continue medical management. IV cefepime and vancomycin. Check lactic acid as patient is flagging sepsis. Leukocytosis trending down. Pain management as needed. Monitor hemoglobin. Transfuse p.r.n. for hemoglobin less than 7. No report of melena or hematemesis. Patient reports heavy menses and that explained the iron deficiency anemia. Eliquis is on hold. She stopped taking Eliquis about 5 days ago. Hydrate with IV fluid.
[2021-03-29 16:30] LABS: Urine Appearance CLOUDY (Clear); Urine Blood 3+ (Negative); Urine Color Red (Yellow); Urine Glucose NEGATIVE (Negative); Urine Protein 2+ (Negative); Urine Specific Gravity 1.025 (1.005-1.030)
[2021-03-29 16:37] LABS: Urine Microscopic Reflex ORDER UMIC
[2021-03-29] MEDS: VANCOMYCIN 2 GM in NA CHLORIDE 0.9% 500 ML IVPB SCH (16:38)
[2021-03-29 16:41] LABS: Urine Bilirubin NEGATIVE (Negative)
[2021-03-29 16:57] LABS: Urine Bacteria <20 /HPF (<20); Urine RBC >50 /HPF (NONE SEEN)
[2021-03-29] MEDS: CEFEPIME/SWI 1gm 10 ML IV SCH (20:08)
[2021-03-29] MEDS ORDERED: POTASSIUM CL SA 10 MEQ TAB PO ONE (21:00)
[2021-03-29] MEDS ORDERED: CEFEPIME 1 GM/VIAL IV SCH (21:00)
[2021-03-29] MEDS ORDERED: IPRATROPIUM BROM 0.5MG/2.5ML NEB ONE (23:48)
[2021-03-29] MEDS ORDERED: ALBUTEROL 2.5 MG/3 ML NEB SOL NEB ONE (23:48)
[2021-03-30] MEDS: NA CHLORIDE 0.9% 1,000 ML IV SCH ×5 (01:57→22:04)
[2021-03-30] MEDS: VANCOMYCIN 2 GM in NA CHLORIDE 0.9% 500 ML IVPB SCH ×2 (02:36→15:15)
[2021-03-30] MEDS: MORPHINE 4 MG/ML SYR IV PRN ×4 (04:27→22:03)
[2021-03-30 06:13] LABS: Absolute Lymphocytes (CBC) 2.3 K/uL (0.7-4.9); Basophils % 0.8 % (0-1.3); Hematocrit 23.8 % (36.0-45.0); Lymphocytes % 15.6 % (15.3-44.8); MPV 6.6 fL (7.6-11.3); RBC Red Blood Cell Count 3.65 M/uL (3.86-4.86)
[2021-03-30 06:32] LABS: Albumin 2.5 g/dL (3.4-5.0); Bilirubin Total 0.4 mg/dL (0.2-1.0); Magnesium 1.8 mg/dL (1.8-2.4); Potassium 3.8 mmol/L (3.5-5.1); Protein, Total 7.6 g/dL (6.4-8.2)
[2021-03-30] MEDS: CEFEPIME/SWI 1gm 10 ML IV SCH ×2 (08:59→22:00)
--- NOTE | 2021-03-30 13:43 | P.PN ---
Subjective Date of Service: 03/30/21 Chief Complaint: Rectus sheath hematoma vs. abscess Patient states her abdominal pain is better today. No fever. WBC continue to trend down. Physical Examination - Vital Signs Temperature: 99.3 F Blood Pressure: 191/86 Pulse: 108 Respirations: 19 Pulse Ox (%): 95 - Physical Exam General: Alert, In no apparent distress, Obese HEENT: Mucous membr. moist/pink Respiratory: Clear to auscultation bilaterally, Normal air movement Cardiovascular: No edema, Regular rate/rhythm, Normal S1 S2 Gastrointestinal: Soft and benign, Non-distended, Tenderness (Mild tenderness in the periumbilical area) Musculoskeletal: No swelling Integumentary: No rashes Assessment And Plan - Current Problems (Diagnosis) (1) Rectus sheath hematoma Current Visit: Yes Status: Acute (2) Leukocytosis Current Visit: Yes Status: Acute (3) History of DVT of lower extremity Current Visit: Yes Status: Acute (4) Morbid obesity due to excess calories Current Visit: Yes Status: Acute (5) Iron deficiency anemia Current Visit: Yes Status: Acute (6) Sepsis Current Visit: Yes Status: Acute - Plan Continue current antibiotics. General surgery Dr. Cornell is following Leukocytosis trending down. Pain management as needed. Hemoglobin appears to be stable around 7 Transfuse p.r.n. for hemoglobin less than 7. No report of melena or hematemesis. Patient reports heavy menses and that explained the iron deficiency anemia. Eliquis is on hold. Continue IV hydration. Repeat imaging tomorrow to reassess abscess versus hematoma.
[2021-03-30] MEDS ORDERED: POTASSIUM CL SA 10 MEQ TAB PO ONE (15:00)
[2021-03-31] MEDS: VANCOMYCIN 2 GM in NA CHLORIDE 0.9% 500 ML IVPB SCH (03:00)
[2021-03-31] MEDS: MORPHINE 4 MG/ML SYR IV PRN ×3 (05:22→22:33)
[2021-03-31 05:43] LABS: Absolute Lymphocytes (CBC) 1.8 K/uL (0.7-4.9); Basophils % 0.2 % (0-1.3); Hematocrit 23.3 % (36.0-45.0); Lymphocytes % 13.5 % (15.3-44.8); MPV 7.1 fL (7.6-11.3); RBC Red Blood Cell Count 3.59 M/uL (3.86-4.86)
[2021-03-31 05:56] LABS: Potassium 3.8 mmol/L (3.5-5.1)
[2021-03-31] MEDS: NA CHLORIDE 0.9% 1,000 ML IV SCH ×3 (07:57→17:57)
[2021-03-31] MEDS: CEFEPIME/SWI 1gm 10 ML IV SCH ×2 (08:48→20:38)
--- NOTE | 2021-03-31 11:10 | RAD REPORT ---
EXAM DESCRIPTION: US - Abdomen Exam Limited - 03/31/2021 10:34 am CLINICAL HISTORY: Rectus hematoma vs abscess COMPARISON: Abdomen Pelvis W Contrast dated 03/27/2021 FINDINGS: Sonographic evaluation of the left lower abdominal wall performed. Exam is correlated with the March 27 CT study. Exam is limited inherently by the amount of subcutaneous fatty tissues. Extending along the mid and l ower left side abdominal wall there is heterogeneous mixed echogenicity tissue corresponding to the t hickened heterogeneous abdominal wall seen on the CT study. Doppler evaluation was limited. No abnorm al internal echogenicity confirmed. Collective CT and ultrasound findings continue to favor rectus sh eath hematoma over abscess. No extension into the intraperitoneal space was identifiable on this stud y. IMPRESSION: Heterogeneous mixed echogenicity tissue involving the mid and lower left side abdominal wall. Collective CT and ultrasound findings continue to favor rectus sheath hematoma or rather than abdomin al wall abscess.
[2021-03-31] MEDS: AMLODIPINE 10 MG TAB PO SCH (11:32)
[2021-03-31] MEDS: ACETAMINOPHEN 500 MG TAB PO PRN (11:32)
--- NOTE | 2021-03-31 13:06 | P.PN ---
Subjective Date of Service: 03/31/21 Chief Complaint: Rectus sheath hematoma vs. abscess Patient reports feeling better. She has been ambulating. Leukocytosis has trended down. Physical Examination - Vital Signs Temperature: 98.5 F Blood Pressure: 197/93 Pulse: 90 Respirations: 18 Pulse Ox (%): 96 - Physical Exam General: In no apparent distress, Oriented x3, Obese HEENT: Mucous membr. moist/pink Neck: JVD not distended Respiratory: Clear to auscultation bilaterally, Normal air movement Cardiovascular: No edema, Regular rate/rhythm, Normal S1 S2 Gastrointestinal: Soft and benign, Non-distended, Tenderness (Periumbilical) Integumentary: No breakdown Neurological: Normal speech, Normal strength at 5/5 x4 extr Assessment And Plan - Current Problems (Diagnosis) (1) Rectus sheath hematoma Current Visit: Yes Status: Acute (2) Leukocytosis Current Visit: Yes Status: Acute (3) History of DVT of lower extremity Current Visit: Yes Status: Acute (4) Morbid obesity due to excess calories Current Visit: Yes Status: Acute (5) Iron deficiency anemia Current Visit: Yes Status: Acute (6) Sepsis Current Visit: Yes Status: Acute - Plan Ultrasound suggests hematoma done an abscess. Serum creatinine trended up. High vancomycin trough. Need to rule out vancomycin induced nephropathy. Check urine sodium and creatinine. Hydrate with normal saline. Vancomycin discontinued and replaced with doxycycline, continue cefepime Nephrology consult. General surgery Dr. Cornell is following Pain management as needed. Hemoglobin appears to be stable around 7 Transfuse p.r.n. for hemoglobin less than 7. No report of melena or hematemesis. Patient reports heavy menses and that couldexplained the iron deficiency anemia. Eliquis is on hold.
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
[2021-03-31] MEDS: ONDANSETRON 4 MG/2 ML VIAL IV PRN (17:26)
[2021-03-31 19:50] LABS: Urine Appearance CLEAR (Clear); Urine Bilirubin NEGATIVE (Negative); Urine Blood 3+ (Negative); Urine Color YELLOW (Yellow); Urine Glucose NEGATIVE (Negative); Urine Protein NEGATIVE (Negative); Urine Urobilinogen 0.2 mg/dL (0.2-1.0)
[2021-03-31 19:59] LABS: Urine Protein/Creatinine Ratio 0.59 ratio (<0.15)
[2021-03-31] MEDS: DOXYCYCLINE 100 MG in NA CHLORIDE 0.9% 100 ML IVPB SCH (20:38)
[2021-03-31 20:59] LABS: Urine Bacteria <20 /HPF (<20); Urine RBC >50 /HPF (NONE SEEN)
[2021-03-31] MEDS ORDERED: VANCOMYCIN 2 GM in NA CHLORIDE 0.9% 500 ML IVPB SCH (21:00)
[2021-04-01 02:14] LABS: Rheumatoid Factor NEG (NEG)
[2021-04-01] MEDS: NA CHLORIDE 0.9% 1,000 ML IV SCH ×3 (03:03→23:57)
[2021-04-01] MEDS: MORPHINE 4 MG/ML SYR IV PRN ×4 (03:36→21:14)
[2021-04-01 06:07] LABS: Absolute Lymphocytes (CBC) 1.7 K/uL (0.7-4.9); Basophils % 0.4 % (0-1.3); Hematocrit 24.1 % (36.0-45.0); Lymphocytes % 15.3 % (15.3-44.8); RBC Red Blood Cell Count 3.69 M/uL (3.86-4.86)
[2021-04-01 06:11] LABS: Albumin 2.6 g/dL (3.4-5.0); Phosphorus 3.8 mg/dL (2.5-4.9); Potassium 3.6 mmol/L (3.5-5.1)
[2021-04-01 06:12] LABS: Potassium 3.6 mmol/L (3.5-5.1)
--- NOTE | 2021-04-01 08:33 | P.PN ---
Subjective Date of Service: 04/01/21 Chief Complaint: Rectus sheath hematoma vs. abscess Subjective: Improving (pain improving, hypertensive. reports ambulating in room to bathroom. no nausea/vomiting, no bleeding) Review of Systems 10-point ROS is otherwise unremarkable Physical Examination - Vital Signs Temperature: 96.9 F Blood Pressure: 146/72 Pulse: 95 Respirations: 18 Pulse Ox (%): 98 Assessment & Plan Physician Review Additional Text: Physical Exam General: AAOx3, NAD HEENT: Mucous membr. moist/pink, normal conjunctiva Respiratory: Clear to auscultation bilaterally, Normal air movement Cardiovascular: No edema, Regular rate/rhythm, Normal S1 S2 Gastrointestinal: Soft, tenderness to palpation in periumbilical and just superior to this area, non-distended Integumentary: No breakdown/lesions Neurological: Normal speech, Normal strength at 5/5 x4 extr Assessment And Plan Rectus sheath hematoma Leukocytosis History of DVT of lower extremity Morbid obesity due to excess calories Iron deficiency anemia Ultrasound suggests hematoma Serum creatinine trended up earlier in hospitalization - concern for vanc induced nephropathy vs inflammatory condition Vancomycin discontinued and replaced with doxycycline, continue cefepime on 8 antibiotics for possible abscess /infectious process Nephrology consulted - auto-immune / inflammatory labs ordered, elevated CRP/ESR Heme/Onc consulted for further input on anticoagualtion and further evaluation Eliquis has been on hold. may need to be restarted on eliquis this evening General surgery Dr. Steven signed off Pain management as needed. Hemoglobin appears to be stable around 7 Transfuse p.r.n. for hemoglobin less than 7. No report of melena or hematemesis. Patient reports heavy menses which could explain the iron deficiency anemia. Dispo: anticipate dc home in 24-48hrs Time Spent Managing Pts Care (In Minutes): 35
[2021-04-01] MEDS: DOXYCYCLINE 100 MG in NA CHLORIDE 0.9% 100 ML IVPB SCH (08:45)
[2021-04-01] MEDS: CEFEPIME/SWI 1gm 10 ML IV SCH ×2 (08:45→21:14)
[2021-04-01] MEDS: AMLODIPINE 10 MG TAB PO SCH (08:45)
[2021-04-01] MEDS ORDERED: POTASSIUM CL SA 10 MEQ TAB PO ONE (09:00)
--- NOTE | 2021-04-01 12:13 | PN ---
Subjective: The patient is seen in room 204 at med/surg floor on [facility]. Th e patient is alert, awake and comfortable. Abdominal pain is significantly improved. She denies any new issues overnight. She has improved her blood pressure after amlodipine 10 mg was started yester day. The blood pressure is already improving down to 140 range. Last blood pressure systolic was 14 6. Her pulse is about 70 and regular, respirations around 14 and comfortable. She is talking comfor tably. Does not have any shortness of breath. No headache. No nausea. No vomiting overnight. Laboratory Data: Labs reviewed. Labs show WBC count improved down to 11.4, hemoglobin 7.4, hematocr it 24.1, platelet count of 476. Chemistries; 140 sodium, potassium 3.6, chloride 108, bicarb is 25, BUN is 12. Creatinine is 1.53, slight improvement perhaps stable compared to yesterday when it was 1 .56. Calcium level 8.6. C-reactive protein elevated to 130 and ESR was also elevated. Vancomycin l evel is down to 16.3. Immunology results of DAVY and double-stranded DNA complements, etc., are still pending. Rheumatoid factor was negative. Assessment And Plan: The patient with acute kidney injury in the setting of abdominal hematoma/cellu litis, abscess. The patient is improving clinically. Abdominal pain is resolved. WBCs are coming d own. The patient does seem to have some underlying inflammation. This could be from the abdominal h ematoma that she has, but I suspect the patient may have a rheumatological condition that may have ca used her to have her miscarriage in the past and also the fact that her grandmother has lupus also ma kes the suspicion of lupus with RBCs in the urine consideration. Double-stranded DNA is pending. Co mplements are pending. DAVY screen is pending. I have also advised the nurse to add anti-phospholipi d antibody to the lab work, which also I have been told is pending. We are waiting at this time for these lab results. Although, the ESR and CRP are quite elevated in the setting of the patient having RBCs in the urine. Her acute kidney injury could be unrelated and may be related just to the vancom ycin and antibiotics that she got. She could have some interstitial nephritis from that or a compone nt of ATN. At this point, since the patient's condition is stabilizing, I do not see any need for st eroids. Volume status seems to be adequate. Once other lab results are back, further plan of care r egarding treatment of any underlying rheumatological issues or inflammation causing disease can be ad dressed. The patient does understand that some of this lab work may not be back, continues to follow up in clinic. I have given her my card and information to follow up with us. The patient also unde rstands she needs to follow up with a truckman as she has a hypercoagulable state and given the f act that she has had 5 DVTs in the past and given the fact that she has had a miscarriage and also hi story of lupus in the family. She does need to get a workup for hypercoagulable state and determinat ion of how long and at what dose her anticoagulation needs to be continued. She has been on Eliquis for 3 years and has not had a problem until this abdominal abscess/hematoma. I have advised the sara ent that it is possible that Eliquis could have led to the hematoma and if she restarts it, there is a slight risk of getting hematoma to progress or have another one; however, given her positive DVTs a nd underlying inflammation, I do think the patient needs to be on anticoagulation. The patient under stands the risks and benefits and will discuss this with the hospitalist team also and with the hemat ologist when she is able to follow up with one to decide on this, but if Eliquis needs to be resumed, it can be resumed at previous dose of the patient's Eliquis medication and then close fol lowup with truckman. /MARIIA Voice ID: [id number] Report ID: [id number]
[2021-04-01] MEDS: carvediloL 3.125 MG TAB PO SCH ×2 (12:55→21:13)
[2021-04-01] MEDS: SOD FERRIC GLUC COMPLX/SUCROSE 125 MG in NA CHLORIDE 0.9% 100 ML IV SCH (17:02)
[2021-04-01] MEDS: DOXYCYCLINE 100 MG CAP PO SCH (21:14)
[2021-04-02] MEDS: MORPHINE 4 MG/ML SYR IV PRN ×4 (03:31→21:10)
[2021-04-02] MEDS: NA CHLORIDE 0.9% 1,000 ML IV SCH (03:32)
[2021-04-02 06:10] LABS: Absolute Lymphocytes (CBC) 1.8 K/uL (0.7-4.9); Basophils % 0.5 % (0-1.3); Hematocrit 23.7 % (36.0-45.0); Lymphocytes % 15.1 % (15.3-44.8); MPV 7.2 fL (7.6-11.3)
[2021-04-02 06:26] LABS: Albumin 2.5 g/dL (3.4-5.0); Phosphorus 3.6 mg/dL (2.5-4.9); Potassium 3.7 mmol/L (3.5-5.1)
[2021-04-02] MEDS ORDERED: POTASSIUM CL SA 10 MEQ TAB PO ONE (09:00)
[2021-04-02] MEDS: CEFEPIME/SWI 1gm 10 ML IV SCH ×2 (09:43→21:10)
[2021-04-02] MEDS: AMLODIPINE 10 MG TAB PO SCH (09:44)
[2021-04-02] MEDS: carvediloL 3.125 MG TAB PO SCH ×2 (09:44→21:11)
[2021-04-02] MEDS: DOCUSATE NA 100 MG CAP PO SCH ×2 (09:44→21:10)
[2021-04-02] MEDS: DOXYCYCLINE 100 MG CAP PO SCH ×2 (09:44→21:11)
[2021-04-02] MEDS: SOD FERRIC GLUC COMPLX/SUCROSE 125 MG in NA CHLORIDE 0.9% 100 ML IV SCH (09:56)
[2021-04-02] MEDS: TRAMADOL HCL 50 MG TAB PO PRN ×2 (15:16→23:38)
--- NOTE | 2021-04-02 15:59 | P.PN ---
Subjective Date of Service: 04/02/21 Chief Complaint: Rectus sheath hematoma vs. abscess Subjective: Improving (continues with significant pain in L abdomen, also reports some constipation, no BM in a few days, +flatus, no nausea/vomiting. reports has been having some menstrual bleeding for the last few days - passing some clots, says this seems to be better today) Review of Systems 10-point ROS is otherwise unremarkable Physical Examination - Vital Signs Temperature: 97.5 F Blood Pressure: 140/67 Pulse: 89 Respirations: 18 Pulse Ox (%): 98 Assessment & Plan Physician Review Additional Text: Physical Exam General: AAOx3, appears uncomfortable HEENT: normal conjunctiva, sclera anicteric Respiratory: Clear to auscultation bilaterally, Normal air movement Cardiovascular: No edema, Regular rate/rhythm, Normal S1 S2 Gastrointestinal: Soft, tenderness to palpation just left to periumbilical region, non-distended Integumentary: No breakdown/lesions Assessment And Plan Rectus sheath hematoma Leukocytosis History of DVT of lower extremity Morbid obesity due to excess calories Iron deficiency anemia CT and Ultrasound findings suggests hematoma over abscess General surgery Dr. Steven signed off - agreed likely hematoma empirically covered with antibiotics - cefepime/vanc; vanc changed to doxy on 03/31 out of concern for possible vanc induced nephropathy Serum creatinine trended up earlier in hospitalization - concern for vanc induced nephropathy vs inflammatory /autoiummune Nephrology consulted - auto-immune / inflammatory labs ordered, elevated CRP/ESR, DAVY positive Heme/Onc consulted as well, continue IV iron, hypercoag workup ordered. Eliquis has been on hold. recommends restart if hematoma stable will repeat CT - discussed with radiology, non-contrast is ok Pain management as needed. Hemoglobin appears to be stable around 7 Transfuse p.r.n. for hemoglobin less than 7. No report of melena or hematemesis. Patient reports heavy menses intermittently which could explain the iron deficiency anemia. Dispo: anticipate dc home in ~48hrs Time Spent Managing Pts Care (In Minutes): 35
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
[2021-04-02 18:51] LABS: RBC Red Blood Cell Count 3.62 M/uL (3.86-4.86)
--- NOTE | 2021-04-02 22:20 | RAD REPORT ---
EXAM DESCRIPTION: CT - Abdomen Pelvis Wo Contrast - 04/02/2021 4:30 pm CLINICAL HISTORY: Abdominal pain. eval hematoma size / ?enlarging COMPARISON: Abdomen Pelvis W Contrast dated 03/27/2021; Abdomen Pelvis W Contrast dated 03/25/2021 ; Abdomen Pelvis W Contrast dated 12/22/2020 TECHNIQUE: CT imaging of the abdomen and pelvis was performed without contrast. Solid organ, bowel a nd vascular assessment is limited due to lack of IV and oral contrast. All CT scans are performed using dose optimization technique as appropriate and may include automated exposure control or mA/KV adjustment according to patient size. FINDINGS: No acute process in lung bases. The heart size is normal. Re- demonstrated polysplenia and midline liver. Azygos continuation of the IVC again noted. The stomach is in the right upper quadran t. The kidneys are unremarkable. Again noted are dilated venous collaterals within the abdomen. No ad nexal mass identified. The left-sided rectus sheath hematoma noted on the prior CT is decreased in si ze. Though the measurement is not exact due to limitations without contrast, it measures approximatel y 6.2 centimeters and previously 8.3 centimeters. No acute fractures. IMPRESSION: Decrease in size of the left sided rectus sheath hematoma. No other significant change. A limited non-contrast examination was performed as detailed.
[2021-04-03] MEDS: MORPHINE 4 MG/ML SYR IV PRN (02:48)
[2021-04-03 06:26] LABS: Hematocrit 25.4 % (36.0-45.0); MPV 7.3 fL (7.6-11.3); RBC Red Blood Cell Count 3.86 M/uL (3.86-4.86)
[2021-04-03 06:28] LABS: Protime INR 1.09
[2021-04-03 06:31] LABS: Albumin 2.8 g/dL (3.4-5.0); Magnesium 1.8 mg/dL (1.8-2.4); Phosphorus 4.2 mg/dL (2.5-4.9); Potassium 3.6 mmol/L (3.5-5.1)
[2021-04-03] MEDS ORDERED: POTASSIUM CL SA 10 MEQ TAB PO ONE (07:51)
[2021-04-03] MEDS: DOCUSATE NA 100 MG CAP PO SCH ×2 (09:12→21:25)
[2021-04-03] MEDS: SOD FERRIC GLUC COMPLX/SUCROSE 125 MG in NA CHLORIDE 0.9% 100 ML IV SCH (09:13)
[2021-04-03] MEDS: CEFEPIME/SWI 1gm 10 ML IV SCH (09:13)
[2021-04-03] MEDS: DOXYCYCLINE 100 MG CAP PO SCH ×2 (09:13→21:26)
[2021-04-03] MEDS: TRAMADOL HCL 50 MG TAB PO PRN ×3 (09:16→23:27)
[2021-04-03] MEDS: carvediloL 3.125 MG TAB PO SCH ×2 (09:17→21:26)
[2021-04-03] MEDS: AMLODIPINE 10 MG TAB PO SCH (09:18)
[2021-04-03 09:28] VITALS: O2SAT 100
--- NOTE | 2021-04-03 10:40 | P.PN ---
Subjective Date of Service: 04/03/21 Chief Complaint: Rectus sheath hematoma vs. abscess Subjective: Improving (pain improving, CT done last night with decreased size of hematoma. no vaginal bleeding - last had blood clots 2 days ago.) Review of Systems 10-point ROS is otherwise unremarkable Physical Examination - Vital Signs Temperature: 98.0 F Blood Pressure: 194/81 Pulse: 85 Respirations: 18 Pulse Ox (%): 100 Assessment & Plan Physician Review Additional Text: Physical Exam General: AAOx3, NAD, super morbid obesity HEENT: normal conjunctiva, sclera anicteric Respiratory: Clear to auscultation bilaterally, Normal air movement Cardiovascular: No edema, Regular rate/rhythm, Normal S1 S2 Gastrointestinal: Soft, tenderness to palpation just left to periumbilical region, non-distended Integumentary: No breakdown/lesions Assessment And Plan Rectus sheath hematoma Leukocytosis History of DVT of lower extremity super morbid obesity due to excess calories Iron deficiency anemia Hypertension CT and Ultrasound findings suggests hematoma over abscess repeat CT with decreased size of hematoma General surgery Dr. Steven signed off - agreed likely hematoma Heme/onc consulted - continue IV iron, hypercoag workup ordered. eliquis on hold. pt refuses coumadin. recommends restart anticoag after further improvement of hgb > 8 Serum creatinine trended up earlier in hospitalization - concern for vanc induced nephropathy vs inflammatory /autoiummune Nephrology consulted - auto-immune / inflammatory labs ordered, elevated CRP/ESR, DAVY positive, other workup pending continue tramadol, dc morphine has h/o menorrhagia / irregular menses discussed with heme/onc and will consult COMMERCIAL SHEET METAL FOREMAN for any further evaluation Hypertension - somewhat responded to pain medication, added coreg, norvasc, and will add hydralazine 04/03 Dispo: anticipate dc home in ~24-48hrs Time Spent Managing Pts Care (In Minutes): 35
[2021-04-03] MEDS: HYDRALAZINE HCL 10 MG TABLET PO SCH ×3 (10:45→21:25)
--- NOTE | 2021-04-03 12:51 | CON ---
History Of Present Illness: Yair Tran is a 40-year-old, 2, para 2, last child was 17 ye ars old. Two and half to 3 years ago, the patient was having severe bleeding problems. Says some pe riods are at 3 days, some periods at 13 days. Ended up in the hospital at [facility] in [place]. They di d an ultrasound, told her she did not have fibroids, gave her blood transfusion at that time. Since then, she continued to have bleeding problems. At this admission, her hemoglobin is approximately 7. She is getting iron therapy. The patient has a history of deep vein thrombophlebitis and even had a vena caval filter put in. She currently apparently has a rectus hematoma. The options are rather limited here. She is not a good surgical candidate for obvious reasons. She cannot take estrogen in the form of pills, patches, or ring. However, Depo-Provera or Mirena IUD might be a feasible option . These are progesterone based controls. There would be some peripheral conversion to estroge n, but given the circumstances here, does would be the only 2 viable options for attempted bleeding c ontrol. This is discussed fully with the patient. She seems to be quite alert and aware of these th ings. She will discuss with Dr. Bustamante what she wishes to do and obviously if she wants to be put on the Depo, that can be done as soon as possible. Very pleasant lady. She thanked me for my consultat ion. SAMUEL/MARIIA Voice ID: [id number] Report ID: [id number]
[2021-04-03] MEDS ORDERED: MORPHINE 4 MG/ML SYR IV ONE (20:33)
[2021-04-03] MEDS: AMOX/K CLAV 875 MG TAB PO SCH (21:26)
[2021-04-04] MEDS: MORPHINE 4 MG/ML SYR IV PRN ×2 (05:17→20:52)
[2021-04-04 06:07] LABS: Hematocrit 25.1 % (36.0-45.0); MPV 7.2 fL (7.6-11.3); RBC Red Blood Cell Count 3.78 M/uL (3.86-4.86)
[2021-04-04 06:18] LABS: Potassium 3.8 mmol/L (3.5-5.1)
[2021-04-04] MEDS ORDERED: POTASSIUM CL SA 10 MEQ TAB PO ONE (09:00)
[2021-04-04] MEDS: SOD FERRIC GLUC COMPLX/SUCROSE 125 MG in NA CHLORIDE 0.9% 100 ML IV SCH (09:00)
[2021-04-04 09:06] LABS: Anisocytosis 2+; Blood Morphology Comment NOTED (NOT SEEN); Hypochromasia 2+; Ovalocytes 1+; Platelet Estimate INCR; White Blood Cell Scan OK (OK)
[2021-04-04] MEDS: TRAMADOL HCL 50 MG TAB PO PRN ×2 (11:11→17:22)
[2021-04-04] MEDS: AMOX/K CLAV 875 MG TAB PO SCH ×2 (11:12→20:52)
[2021-04-04] MEDS: DOCUSATE NA 100 MG CAP PO SCH ×2 (11:12→20:51)
[2021-04-04] MEDS: DOXYCYCLINE 100 MG CAP PO SCH ×2 (11:12→20:52)
[2021-04-04] MEDS: carvediloL 3.125 MG TAB PO SCH ×2 (11:12→20:52)
[2021-04-04] MEDS: ACETAMINOPHEN 500 MG TAB PO PRN ×2 (11:13→17:23)
[2021-04-04] MEDS: HYDRALAZINE HCL 10 MG TABLET PO SCH ×3 (11:14→20:52)
[2021-04-04] MEDS: AMLODIPINE 10 MG TAB PO SCH (11:14)
--- NOTE | 2021-04-04 13:37 | P.PN ---
Subjective Date of Service: 04/04/21 Chief Complaint: Rectus sheath hematoma vs. abscess Subjective: Improving (feeling a little better, able to move around more today. still requiring pain medication. states wants to go forward with depo injection. Hgb down, slight spotting yesterday) Review of Systems 10-point ROS is otherwise unremarkable Physical Examination - Vital Signs Temperature: 97.0 F Blood Pressure: 180/84 Pulse: 90 Respirations: 16 Pulse Ox (%): 99 Assessment & Plan Physician Review Additional Text: Physical Exam General: AAOx3, NAD, super morbid obesity HEENT: normal conjunctiva, sclera anicteric Respiratory: Clear to auscultation bilaterally, Normal air movement Cardiovascular: No edema, Regular rate/rhythm, Normal S1 S2 Gastrointestinal: Soft, tenderness to palpation left to periumbilical region, non-distended Integumentary: No breakdown/lesions Assessment And Plan Rectus sheath hematoma Leukocytosis History of DVT of lower extremity super morbid obesity due to excess calories Iron deficiency anemia Hypertension CT and Ultrasound findings suggests hematoma over abscess repeat CT with decreased size of hematoma General surgery Dr. Steven signed off - agreed likely hematoma Heme/onc consulted - continue IV iron, hypercoag workup ordered. eliquis on hold. pt refuses coumadin. recommends restart anticoag after further improvement / hgb > 8 Serum creatinine trended up earlier in hospitalization - concern for vanc induced nephropathy vs inflammatory /autoiummune Nephrology consulted - auto-immune / inflammatory labs ordered, elevated CRP/ESR, DAVY positive, other workup pending continue tramadol has h/o menorrhagia / irregular menses - surveyor consulted, recommended Depo-provera vs IUD, pt decided depo Hypertension - somewhat responded to pain medication but remains elevated, added coreg, norvasc, added hydralazine 04/03 obtain manual BP Dispo: anticipate dc home in ~24-48hrs Time Spent Managing Pts Care (In Minutes): 35
[2021-04-04] MEDS ORDERED: MEDROXYPROGEST ACET 150 MG/ML IM SCH (14:00)
--- NOTE | 2021-04-04 20:52 | P.PN ---
Date of Service: 04/04/21 Vital Signs Temp Pulse Resp BP Pulse Ox 97.0 F 90 16 180/84 H 99 04/04/21 13:37 04/04/21 13:37 04/04/21 13:37 04/04/21 13:37 04/04/21 13:37 Medications Acetaminophen (Acetaminophen 500 Mg Tab) 500 mg PO Q4HP PRN PRN Reason: TEMP > 100' F Last Admin: 04/04/21 17:23 Dose: 500 mg Documented by: Amlodipine Besylate (Amlodipine 10 Mg Tab) 10 mg PO DAILY [facility] Last Admin: 04/04/21 11:14 Dose: 10 mg Documented by: Amoxicillin/Clavulanate Potassium (Amox/K Clav 875 Mg Tab) 875 mg PO BID [facility]; Protocol Last Admin: 04/04/21 11:12 Dose: 875 mg Documented by: Carvedilol (Carvedilol 3.125 Mg Tab) 3.125 mg PO BID [facility] Last Admin: 04/04/21 11:12 Dose: 3.125 mg Documented by: Docusate Sodium (Docusate Na 100 Mg Cap) 100 mg PO BID [facility] Last Admin: 04/04/21 11:12 Dose: 100 mg Documented by: Doxycycline Monohydrate (Doxycycline 100 Mg Cap) 100 mg PO BID [facility] Last Admin: 04/04/21 11:12 Dose: 100 mg Documented by: Hydralazine HCl (Hydralazine Hcl 10 Mg Tablet) 10 mg PO TID [facility] Last Admin: 04/04/21 16:00 Dose: 10 mg Documented by: Ferric Sodium Gluconate Complex 125 mg/ Sodium Chloride 110 mls @ 100 mls/hr IV DAILY [facility] Stop: 04/08/21 10:05 Last Admin: 04/04/21 09:00 Dose: 110 mls Documented by: Losartan Potassium (Losartan Potassium 50 Mg Tablet) 50 mg PO BID [facility] Morphine Sulfate (Morphine 4 Mg/Ml Syr) 4 mg IV Q6H PRN PRN Reason: Pain scale 5-7 (Moderate) Last Admin: 04/04/21 05:17 Dose: 4 mg Documented by: Ondansetron HCl (Ondansetron 4 Mg/2 Ml Vial) 4 mg IV Q6HP PRN PRN Reason: NAUSEA / VOMITING Last Admin: 03/31/21 17:26 Dose: 4 mg Documented by: Sodium Chloride (Flush Normal Saline 10 Ml) 10 ml IV BID JB Last Admin: 04/04/21 09:00 Dose: 10 ml Documented by: Tramadol HCl (Tramadol Hcl 50 Mg Tab) 50 mg PO Q6H PRN PRN Reason: Pain scale 5-7 (Moderate) Last Admin: 04/04/21 17:22 Dose: 50 mg Documented by: Assessment/ Plan: Nephrology Progress Note No chest pain or dyspnea No acute events overnight Vitals, medications blood work and imaging reviewed in the chart NAD. Obese. NCAT. MMM. Neck supple. CTA. RRR. ND Abd. No C/C/E. AAO. Normal speech. A/P Continue current POC and Medications other than the changes listed. AM labs as ordered. Recommend daily weight. CKD III with protinuria -No NSAIDs HTN -Start Losartan -Continue Amlodipine Anemia in chronic illness Iron Deficiency -Continue IV iron Rectus sheath hematoma Hx DVT Case reviewed with Dr. Bustamante
[2021-04-04] MEDS: LOSARTAN POTASSIUM 50 MG TABLET PO SCH (21:26)
[2021-04-05] MEDS: TRAMADOL HCL 50 MG TAB PO PRN ×2 (04:38→10:17)
[2021-04-05 06:12] LABS: Hematocrit 25.1 % (36.0-45.0); MPV 7.3 fL (7.6-11.3); RBC Red Blood Cell Count 3.84 M/uL (3.86-4.86)
[2021-04-05 06:33] LABS: Albumin 2.8 g/dL (3.4-5.0); C-Reactive Protein 91.7 mg/L (<3.00); Potassium 3.7 mmol/L (3.5-5.1)
[2021-04-05] MEDS ORDERED: POTASSIUM CL SA 10 MEQ TAB PO ONE (06:34)
[2021-04-05] MEDS: SOD FERRIC GLUC COMPLX/SUCROSE 125 MG in NA CHLORIDE 0.9% 100 ML IV SCH (09:00)
[2021-04-05] MEDS: DOCUSATE NA 100 MG CAP PO SCH (10:10)
[2021-04-05] MEDS: carvediloL 3.125 MG TAB PO SCH (10:10)
[2021-04-05] MEDS: HYDRALAZINE HCL 10 MG TABLET PO SCH ×2 (10:10→14:29)
[2021-04-05] MEDS: AMOX/K CLAV 875 MG TAB PO SCH (10:10)
[2021-04-05] MEDS: LOSARTAN POTASSIUM 50 MG TABLET PO SCH (10:11)
[2021-04-05] MEDS: DOXYCYCLINE 100 MG CAP PO SCH (10:11)
[2021-04-05] MEDS: AMLODIPINE 10 MG TAB PO SCH (10:11)
[2021-04-05] MEDS: ACETAMINOPHEN 500 MG TAB PO PRN (10:17)
--- NOTE | 2021-04-05 11:47 | PN ---
Subjective: The patient is seen in room 204 at [facility]. The patient is alert, awake and comfortable. Denies any new issues or complaints. She has Depo shot through UROLOGY TEACHER to help con trol her bleeding. She is not having any vaginal bleeding currently. She denies any other pain or d ifficulty with shortness of breath. She is alert, awake, talking in full sentences and comfortable. Blood pressure is significantly improved. Objective: Vital Signs: Vitals show blood pressure of 136/84, last pulse 76, respirations are aroun d 14-16 and stable. The patient is afebrile, saturating at 99% on room air. Lungs: Clear to auscultation. Abdomen: Soft. Extremities: Do not reveal any pitting edema. Heart: Sounds are regular. Medications: Reviewed. The patient is currently on amlodipine, has been started on losartan, has to lerated that well and hydralazine. The patient is already also on doxycycline and on Augmentin. The patient is also getting Coreg 3.125 b.i.d. Laboratory Data: Lab data reviewed. Labs show WBC count of 10.9, this is now in normal range, hemog lobin 8, hematocrit 25.1, hemoglobin has been stable, actually somewhat improved compared to yesterda y. Her chemistry shows sodium of 138, potassium 3.7, chloride 103, bicarb is 28, BUN is 15, creatini ne is now in normal range at 1.28, improved from 1.53 from April 01 when it peaked. Her C-reactive protein is still elevated at about 91. Prolactin level 0.09. Albumin is 2.8. DAVY is positive. Rh eumatoid factor and double-stranded DNA are negative. Complements are in reasonable range. Assessment And Plan: 1.The patient with acute kidney injury, possibly from vancomycin or other antibiotics. Currently st abilized with creatinine back in normal range. Electrolytes all look good. 2.Hypertension. The patient's blood pressure is improved, on losartan, on Coreg, hydralazine. Cont inue current medications. The patient is tolerating these well and blood pressure has improved. If the patient does get discharged, we would recommend getting a basic metabolic panel checked within a week and follow up with us. After that to evaluate residual renal function and blood pressure theein gs. The patient should bring all her medications to the office. The patient has information to make appointment. I have given her the card to the office. She can make appointment either with myself in [place], with Dr. Black in [place] or [place] offices. 3.Question of hypercoagulable state, history of deep vein thromboses, history of miscarriage, antiph ospholipid antibodies pending. I have recommended that the patient follow up with the automotive technician instructor . Also recommended that the patient should follow up with a building associate. She states that she has a lready been evaluated by Dr. Scales and now workup has been ordered to evaluate her for hypercoag ulable state. The patient states that post discharge she will follow up with Dr. Scales also to get her evaluation completed. The patient is currently not on Eliquis. We will defer to Dr. Chepe siegel the hematology/solar sales specialist to decide when that could be resumed. /MARIIA Voice ID: [id number] Report ID: [id number]
--- NOTE | 2021-04-05 12:53 | P.DS ---
Admission Date: 03/27/21 Discharge Date: 04/05/21 Disposition: ROUTINE DISCHARGE Discharge Condition: GOOD Reason for Admission: Rectus sheath hematoma vs. abscess Consultations: Nephrology - Dr. Black / Vasiliy General Surgery - Dr. Tenisha Jackson/Onc - Dr. Scales FLOWER SHOP MANAGER - Dr. Mathews Procedures: CT Abdomen Pelvis W Contrast - 03/27/2021 9:09 pm FINDINGS: The lung bases are clear. Hepatic steatosis with areas of fatty sparing. Prior splenectomy with splenosis. No focal renal masses. IVC filter noted. There is a small volume of free fluid large abdominal wall venous collateral in the left rectus sheath but increased adjacent fluid. Recanalized umbilical vein. Azygous continuation of the IVC is noted. No bowel obstruction. No fracture. No suspicious bony findings. IMPRESSION: Increased fullness in the left rectus sheath concerning for the development of a rectus sheath hematoma. There is also increased simple appearing free fluid in the abdomen. Note that there is a large venous collateral centered in this location as a result of congenital/developmental collateral venous pathways.. US - Abdomen Exam Limited - 03/31/2021 10:34 am FINDINGS: Sonographic evaluation of the left lower abdominal wall performed. Exam is correlated with the March 27 CT study. Exam is limited inherently by the amount of subcutaneous fatty tissues. Extending along the mid and lower left side abdominal wall there is heterogeneous mixed echogenicity tissue corresponding to the thickened heterogeneous abdominal wall seen on the CT study. Doppler evaluation was limited. No abnormal internal echogenicity confirmed. Collective CT and ultrasound findings continue to favor rectus sheath hematoma over abscess. No extension into the intraperitoneal space was identifiable on this study. IMPRESSION: Heterogeneous mixed echogenicity tissue involving the mid and lower left side abdominal wall. Collective CT and ultrasound findings continue to favor rectus sheath hematoma o r rather than abdominal wall abscess. CT - Abdomen Pelvis Wo Contrast - 04/02/2021 4:30 pm FINDINGS: No acute process in lung bases. The heart size is normal. Re- demonstrated polysplenia and midline liver. Azygos continuation of the IVC again noted. The stomach is in the right upper quadrant. The kidneys are unremarkable. Again noted are dilated venous collaterals within the abdomen. No adnexal mass identified. The left-sided rectus sheath hematoma noted on the prior CT is decreased in size. Though the measurement is not exact due to limitations without contrast, it measures approximately 6.2 centimeters and previously 8.3 centimeters. No acute fractures. IMPRESSION: Decrease in size of the left sided rectus sheath hematoma. No other significant change. A limited non-contrast examination was performed as detailed. Problem List Rectus sheath hematoma Leukocytosis History of recurrent/multiple DVT of lower extremity super morbid obesity due to excess calories chronic anemia, Iron deficiency and blood loss menorrhagia Hypertension Brief History of Present Illness: 40-year-old -Armenian female with history of DVT status post IVC filter on chronic anticoagulation therapy presents emergency department for left lower quadrant abdominal pain. Patient was seen by ED provider 2 days prior for left lower quadrant pain, was discharged home on Cipro/Flagyl after CT scan was negative at that time. Patient with increasing pain over the course of last 48 hours. Patient reevaluated in the emergency department, labs significant for white blood cell count 20.9 with left shift hemoglobin 8.8 hematocrit 29.3, patient with chronic anemia CT scan abdomen pelvis demonstrates increased fullness in the left rectus sheath concerning for development of a rectus sheath hematoma versus abscess. ED provider consulted with general surgery who recommends n.p.o., admission with broad-spectrum antibiotics, hold Eliquis. Hospital Course: Patient's eliquis was held, empirically covered with antibiotics, and general surgery consulted. It was felt this was most likely a hematoma and not an abscess. On hospital day 3-4 patient developed an GHANSHYAM, felt secondary to vancomycin. Her antibiotics were switched, nephrology was consulted, and patient underwent further workup. After further discussion with the patient, she reported a family member with SLE. autoimmune workup was ordered and at time of discharge the only results back were +DAVY. Due to her history of hypercoagulation and ongoing issues of bleeding / menorrhagia, Heme/onc was consulted. They recommended further workup for hypercoagulopathy and for the patient to restart anticoagulation once her bleeding stopped / hemoglobin was stable and >8.0. Patient was also found to have significant iron deficiency anemia and received 5 days of 125mg IV iron (625mg) and to continue on PO replacement. FLOWER SHOP MANAGER was consulted due to pt's h/o menorrhagia. Patient reported full workup at a different hospital ~2-3 years ago and was told she had no fibroids or any "physical or abnormal cause of bleeding". Since then, she lost her insurance and has not followed up. Dr. Mathews recommended Depo-provera vs non-estrogen IUD to help with her bleeding. Patient decided on depo-provera and received this on 04/04. She was also noted to have severe hypertension and eventually improved with addition of 3 anti-hypertensive medications. Within the last ~24hrs of discharge, patient's BP ranged from 110s-140 systolic, so she was discharged on norvasc and losartan, not the coreg 3.125 she was taking as well. She has a BP cuff at home and will continue to monitor. Follow up with PCP She will follow up with nephrology and Dr. Scales in the next few weeks to review auto-immune / hypercoagulable workup results. Patient states she did not want to take eliquis anymore. Pros/Cons were discussed, and patient ultimately decided on taking 2.5mg BID eliquis instead of the 5mg daily she had been doing. She will f/u with Heme/onc. Recommended labwork in ~1 week to check Hgb and renal function. Vital Signs/Physical Exam: Temp Pulse Resp BP Pulse Ox 96.9 F 85 16 143/75 H 99 04/05/21 08:00 04/05/21 08:00 04/05/21 08:00 04/05/21 08:00 04/05/21 08:00 General: Alert, In no apparent distress, Oriented x3 HEENT: Mucous membr. moist/pink, Sclerae nonicteric Neck: Supple Respiratory: Clear to auscultation bilaterally, Normal air movement Cardiovascular: No edema, Regular rate/rhythm, Normal S1 S2 Gastrointestinal: Soft and benign, Non-distended, Tenderness (L periumbilical / L abd region) Musculoskeletal: No tenderness Integumentary: No rashes, No breakdown, No significant lesion Neurological: Normal speech, Normal strength at 5/5 x4 extr, Normal affect Laboratory Data at Discharge: WBC 10.90 K/uL (4.3-10.9) 04/05/21 05:46 Hgb 8.0 g/dL (12.0-15.0) L 04/05/21 05:46 Hct 25.1 % (36.0-45.0) L 04/05/21 05:46 Plt Count 576 K/uL (152-406) H 04/05/21 05:46 PT 12.5 SECONDS (9.5-12.5) 04/03/21 06:00 INR 1.09 04/03/21 06:00 APTT 28.2 SECONDS (24.3-36.9) 04/03/21 06:00 Sodium 138 mmol/L (136-145) 04/05/21 05:46 Potassium 3.7 mmol/L (3.5-5.1) 04/05/21 05:46 BUN 15 mg/dL (7-18) 04/05/21 05:46 Creatinine 1.28 mg/dL (0.55-1.3) 04/05/21 05:46 Glucose 88 mg/dL (74-106) 04/05/21 05:46 Phosphorus 4.0 mg/dL (2.5-4.9) 04/05/21 05:46 Magnesium 1.8 mg/dL (1.8-2.4) 04/03/21 06:00 Total Bilirubin 0.4 mg/dL (0.2-1.0) 03/30/21 05:58 AST 21 U/L (15-37) 03/30/21 05:58 ALT 18 U/L (12-78) 03/30/21 05:58 Alkaline Phosphatase 130 U/L (45-117) H 03/30/21 05:58 Lipase 26 U/L (73-393) L 03/27/21 19:58 Home Medications: Apixaban [Eliquis] 5 mg PO BID 03/28/21 Amlodipine [Norvasc*] 10 mg PO DAILY 30 Days #30 tab 04/05/21 Amox/Clavulanate [Augmentin 875-125 Tab*] 875 mg PO BID 5 Days #10 tab 04/05/21 Ferrous Sulfate [Iron] 325 mg PO DAILY 30 Days #30 tablet 04/05/21 Losartan Potassium [Cozaar*] 50 mg PO BID 30 Days #60 tablet 04/05/21 traMADol HCL [Ultram*] 50 mg PO Q8H PRN 7 Days #20 tab 04/05/21 New Medications: Amox/Clavulanate [Augmentin 875-125 Tab*] 875 mg PO BID 5 Days #10 tab Losartan Potassium [Cozaar*] 50 mg PO BID 30 Days #60 tablet Ferrous Sulfate [Iron] 325 mg PO DAILY 30 Days #30 tablet Amlodipine [Norvasc*] 10 mg PO DAILY 30 Days #30 tab traMADol HCL [Ultram*] 50 mg PO Q8H PRN 7 Days #20 tab PRN Reason: Pain Scale 5-7 (Moderate) Diet: Regular Activity: Ad wilder Followup: Faina Mathews MD [ACTIVE - CAN ADMIT] - Ann Amanda MD [ACTIVE - CAN ADMIT] - Jannette Scales MD [ACTIVE - CAN ADMIT] - Augustin Massey MD [Primary Care Provider] - Time spent managing pt's care (in minutes): 45
[2021-04-05 13:04] VITALS: BP 147/69; TEMP 98
[2021-04-07 13:36] LABS: Protein C Antigen 75 % (70-140)
[2021-04-08 20:43] LABS: Prothrombin Gene Analysis Test REPORT
== END 2021-04-05 15:09 | disposition home or self-care (01) | DRG 556 ==
LOC: ER 15:21 → ERHOLD 22:17 → 2ND 03-28 12:25
PROVIDERS: ADMIT Internal Medicine; ATTEND Internal Medicine
DX: M79.81 Nontraumatic hematoma of soft tissue (principal); Z68.44 Body mass index [BMI] 60.0-69.9, adult; N17.9 Acute kidney failure, unspecified; D68.59 Other primary thrombophilia; E66.01 Morbid (severe) obesity due to excess calories; D50.0 Iron deficiency anemia secondary to blood loss (chronic); I10 Essential (primary) hypertension; D72.829 Elevated white blood cell count, unspecified; N92.0 Excessive and frequent menstruation with regular cycle; Z86.718 Personal history of other venous thrombosis and embolism; Z20.822 Contact with and (suspected) exposure to COVID-19; Z79.01 Long term (current) use of anticoagulants
CPT/HCPCS: 36415; 74176; 74177; 76705; 80048; 80053; 80069; 80076; 80202; 81001; 81003; 81015; 81240; 81241; 82570; 82728; 82947; 83540; 83605; 83690; 83735; 84145; 84156; 84300; 84466; 85025; 85027; 85044; 85301; 85302; 85305; 85306; 85610; 85652; 85730; 86038; 86140; 86160; 86225; 86430; 87086; 87088; 94640; 96361; 96365; 96375; 99283; J0692; J1050; J2405; J2543; J2916; J3370; J7030; J7040; Q9967; U0003

== ENCOUNTER 2021-07-25 22:53 | Emergency (ER) | payer SELFPAY ==
--- OUTSIDE RECORDS SUMMARY | 2021-07-25 22:56 | XMS REPORT | Continuity of Care Document ---
:1980 Author Organization [facility] t Address [facility] [place] [address] Care Team Providers Name Role Phone System MD, Not In Attending Clinician Unavailable Doctor Unassigned, Name Attending Clinician Unavailable Payers Payer Name Policy Type Policy Number Effective Date Expiration Date S ource Problems Condition Condition Condition Status Onset Resolution Last Treating Co mments Source Name Details Category Date Date Treatment Clinician Date Symptomati Symptomati Disease Active U nivers c anemia c anemia 2-11 ity of 00:00: [place] 00 Medical Branch DVT (deep DVT (deep Disease Active Uni vers venous venous 1-12 [place] 00 [facility] Backache Backache Disease Active Overview: Un gabriel 5-21 ICD10 ity of 00:00: Diagnosis [place] Term Medical Graphic Coordinator Branch Utility Papanicola Papanicola Disease Active Overview : Univers ou smear ou smear 5-10 Refer to ity of of 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:00: dysplasia [place] with low with low 00 clinic Medica l 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) Anemia Anemia Disease Active Overview: Univer s 5-07 ICD10 ity of 00:00: Diagnosis [place] 00 Term Medical Graphic Coordinator Branch Utility Trichomona Trichomona Disease Active U nivers l l 5-07 ity of vulvovagin vulvovagin [place] it[place] itis 00 Medical Branch Morbid Morbid Disease Active Univers obesity obesity 01-03 ity of 00:00: [place] 00 Medical Branch BV BV Disease Active Univers (bacterial (bacterial 01-03 it y of vaginosis[place]inosis[place] [facility] Branch Need for Need for Disease Active Unive rs prophylact prophylact 01-03 it y of ic ic 00:00: [place] vaccinatio vaccinatio 00 Me dical n with n with Branch combined combined diphtheria diphtheria -tetanus-p -tetanus-p ertussis ertussis (DTP) (DTP) vaccine vaccine Elevated Elevated Disease Active Unive rs blood blood 01-03 ity of pressure pressure 00:00: [place] reading reading 00 Medical without without Branch diagnosis diagnosis of of hypertensi hypertensi on on Encounter Encounter Disease Active Overview: Univers for for 01-03 ICD10 ity of routine routine 00:00: Diagnosis [place] gynecologi gynecologi 00 Term Me dical wiliam wiliam Graphic Coordinator Branch examinatio examinatio Utility n n Tobacco Tobacco Disease Active Univers use use 01-03 ity of disorder disorder 00:00: [place] 00 [facility] Branch Dysplasia Dysplasia Disease Active Overview: Univers of cervix of cervix 01-03 Colpo ity of 00:00: 2007, [place] 00 NIL- pap Medical smear in Branch 2009.ICD1 0 Diagnosis Term Graphic Coordinator Utility Allergies, Adverse Reactions, Alerts This patient has no known allergies or adverse reactions. Social History Social Habit Start Date Stop Date Quantity Comments Source History of Cigarette Smoker Universi ty of tobacco use [facility] Alcohol intake [facility] Tobacco Comment 2018-10-10 2018-10-10 stopped 2 mos ago Un iversity of 00:00:00 00:00:00 [facility] Sex Assigned At [birth year] [facility] 00:00:00 00:00:00 Smoking Status Start Date Stop Date Source Tobacco smoking [facility] consumption unknown Former smoker 2018-10-11 00:00:00 2018-10-11 [place] [facility] 00:00:00 [facility] Medications Ordered Filled Start Stop Current Ordering Indication Dosage Frequency Signature Comments Components Source Medication Medication Date Date Medication? Clinician (SIG) Name Name No known No Univers medications ity of [facility] Immunizations Ordered Filled Immunization Date Status Comments Sourc e Immunization Name Name Tdap 2013-01-03 Completed University 00:00:00 [facility] Rubella 2005-09-01 Completed University 00:00:00 [facility] Td 1995-01-03 Completed [facility] 00:00:00 [facility] Procedures Procedure Date / Time Performing Clinician Source Performed AUTHORIZATION FOR 2018-11-05 06:01:00 Doctor Unassigned, No Univ [facility] RELEASE OF PHI Name [facility] Encounters Start End Encounter Admission Attending Care Care Encounter Source Date/Time Date/Time Type Type Clinicians Facility Department ID 2020-12-22 2020-12-22 Emergency E [facility] [id number] [facility] 12:11:00 12:11:00 2020-12-22 2020-12-22 EXT [facility] OP System, EXT MSRDP [id number] [place] 00:00:00 00:00:00 Provider LOCATION [id number] Health Not In [id number] 2018-11-05 2018-11-05 Orders Doctor JACQUELYN [id number] 00:00:00 00:00:00 Only Unassigned, TAYLA [id number] [place] [facility] [id number] 2018-11-05 2018-11-05 Orders Doctor JACQUELYN [id number] [facility] 00:00:00 00:00:00 Only Unassigned, TAYLA [id number] ity of [place] [facility] [id number] Mack as [phone] [place] [address] Branch Results This patient has no known results.
[2021-07-25] MEDS ORDERED: MORPHINE 4 MG/ML SYR ONE (23:45)
[2021-07-25] MEDS ORDERED: ONDANSETRON 4 MG/2 ML VIAL ONE (23:45)
[2021-07-26 01:05] LABS: Absolute Lymphocytes (CBC) 2.9 K/uL (0.7-4.9); Basophils % 0.7 % (0-1.3); Hematocrit 31.9 % (36.0-45.0); Lymphocytes % 29.9 % (15.3-44.8); MPV 7.4 fL (7.6-11.3); RBC Red Blood Cell Count 4.13 M/uL (3.86-4.86)
[2021-07-26 01:09] LABS: Protime INR 0.98
[2021-07-26 01:21] LABS: ALT/SGPT 20 U/L (12-78); AST/SGOT 19 U/L (15-37); Albumin 3.4 g/dL (3.4-5.0); Alkaline Phosphatase 99 U/L (45-117); BUN Blood Urea Nitrogen 18 mg/dL (7-18); Bicarbonate 26 mmol/L (21-32); Bilirubin Direct < 0.1 mg/dL (0-0.2); Bilirubin Total 0.2 mg/dL (0.2-1.0); Creatine Phosphokinase 72 U/L (26-192); Glucose Level 100 mg/dL (74-106); Potassium 3.7 mmol/L (3.5-5.1); Sodium Level 142 mmol/L (136-145)
[2021-07-26] MEDS ORDERED: SMZ./TMP. 800/160 MG TABLET ONE (02:16)
--- NOTE | 2021-07-26 02:17 | ER ---
Nurse's Notes [facility] Name: aYir Tran Age: 40 yrs Sex: Female : 1980 Arrival Date: 07/25/2021 Time: 22:56 Bed 8 Private MD: Diagnosis: Cellulitis, Left Lower Extremity Presentation: 07/25 23:37 Chief complaint: Patient states: LLE pain/swelling. Coronavirus screen: Vaccine status: df1 Patient reports receiving the 1st dose of the Covid vaccine. Client denies travel out of the [place] in the last 14 days. At this time, the client does not indicate any symptoms associated with coronavirus-19. Ebola Screen: Patient negative for fever greater than or equal to 101.5 degrees Fahrenheit, and additional compatible Ebola Virus Disease symptoms Patient denies exposure to infectious person. Patient denies travel to an Ebola-affected area in the 21 days before illness onset. Initial Sepsis Screen: Does the patient meet any 2 criteria? No. Patient's initial sepsis screen is negative. Does the patient have a suspected source of infection? No. Patient's initial sepsis screen is negative. Risk Assessment: Do you want to hurt yourself or someone else? Patient reports no desire to harm self or others. Onset of symptoms was April 30, 2021. 23:37 Method Of Arrival: Wheelchair df1 23:37 Acuity: MICHAEL 3 df1 07/26 02:41 Note LLE warm to touch. Skin firm/hard. 1+ edema to LLE. df1 Triage Assessment: 07/25 23:38 General: Appears uncomfortable, Behavior is calm, cooperative. Pain: Complains of pain df1 in left calf and left Achilles Pain does not radiate. Pain currently is 10 out of 10 on a pain scale. 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 - Social history:: Smoking status: Patient/guardian denies using tobacco. Screenin/27 02:40 Abuse screen: Denies threats or abuse. Nutritional screening: No deficits noted. df1 Tuberculosis screening: No symptoms or risk factors identified. Fall Risk None identified. Assessment: 02:38 General: Appears in no apparent distress. Behavior is calm, cooperative. Pain: df1 Complains of pain in left calf and left Achilles Pain does not radiate. Neuro: No deficits noted. Cardiovascular: Capillary refill < 3 seconds. Cardiovascular: Edema is 1+ to left midcalf and left ankle. Respiratory: Respiratory effort is even, unlabored, Respiratory pattern is regular, symmetrical, Breath sounds are clear bilaterally. GI: No deficits noted. : No deficits noted. EENT: No deficits noted. Derm:. Musculoskeletal: No deficits noted. Vital Signs: 07/25 23:12 BP 176 / 115; Pulse 96; Resp 18; Temp 98.9(O); Pulse Ox 100% on R/A; oe 07/26 00:00 BP 165 / 90; Pulse 90; Resp 18; Pulse Ox 97% on R/A; Pain 5/10; df1 01:30 BP 159 / 89; Pulse 91; Resp 18; Pulse Ox 100% on R/A; Pain 5/10; df1 02:38 BP 160 / 88; Pulse 92; Resp 18; Pulse Ox 100% on R/A; Pain 5/10; df1 ED Course: 07/25 22:56 Patient arrived in ED. bp1 23:03 Behzad Albarran MD is Attending Physician. mh7 23:24 Irene Mcbride is Primary Nurse. df1 23:38 Triage completed. df1 23:44 Creatine Phosphokinase Sent. df1 23:44 Basic Metabolic Panel Sent. df1 23:44 Protime (+INR) Sent. df1 23:44 PTT, Activated Partial Thromb Sent. df1 23:44 Liver (Hepatic) Function Sent. df1 23:44 CBC with Automated Diff Sent. df1 23:44 CPK Sent. df1 23:44 LFT's Sent. df1 23:44 Protime (+inr) Sent. df1 23:44 Ptt, Activated Sent. df1 23:44 CBC with Diff Sent. df1 23:44 US Extremity Venous Unilateral Ltd Sent. df1 23:44 Basic Metabolic Panel Sent. df1 23:46 Inserted saline lock: 20 gauge in right antecubital area, using aseptic technique. df1 07/26 00:14 US Extremity Venous Unilateral Ltd In Process Unspecified. EDMS 02:40 No provider procedures requiring assistance completed. IV discontinued, intact, df1 bleeding controlled, No redness/swelling at site. Pressure dressing applied. 02:40 Patient has correct armband on for positive identification. Placed in gown. Bed in low df1 position. Call light in reach. Side rails up X 1. library monitor on. Pulse ox on. NIBP on. 02:42 Arm band placed on right wrist. df1 Administered Medications: 07/25 23:46 Drug: morphine 4 mg Route: IVP; Site: right antecubital; df1 23:46 Drug: Zofran (Ondansetron) 4 mg Route: IVP; Site: right antecubital; df1 07/26 02:15 Drug: Bactrim (trimethoprim-sulfamethoxazole) (160 mg-800 mg (DS) 1 tablet Route: PO; cc4 Outcome: 02:16 Discharge ordered by . ricky 02:42 Discharged to home ambulatory. df1 02:42 Condition: good 02:42 Discharge instructions given to patient, Instructed on discharge instructions, follow up and referral plans. Demonstrated understanding of instructions, follow-up care, medications, Prescriptions given X 2. 02:43 Patient left the ED. df1 Signatures: Dispatcher [employer] EDNH Harjit Coronado Brittany bp1 Holmes, Maurice, MD MD 7 Erica Martínez RN RN cc4 Irene Mcbride df1
--- NOTE | 2021-07-26 02:17 | EDPHYS ---
Physician Documentation [facility] Name: Yair Tran Age: 40 yrs Sex: Female : 1980 Arrival Date: 07/25/2021 Time: 22:56 Bed 8 Private MD: ED Physician Behzad Albarran HPI: 07/25 23:10 This 40 yrs old Black Female presents to ER via Wheelchair with complaints of Leg Pain, mh7 Leg Swelling. 23:10 The patient presents with pain, that is acute, swelling. The complaints affect the left mh7 leg. Context: The problem was sustained at an unknown site, resulted from an unknown cause, the patient can fully bear weight, the patient is able to ambulate, with mild difficulty, Problem is a result from a previous injury: No. Onset: The symptoms/episode began/occurred 2 month(s) ago. Modifying factors: The symptoms are alleviated by nothing. the symptoms are aggravated by movement, weight bearing. Associated signs and symptoms: Pertinent positives: calf tenderness, swelling, warmth, Pertinent negatives fever, nausea, numbness, rash, tingling, vomiting, weakness. Treatment prior to arrival includes: Was prescribed Keflex 2 months ago. Severity of symptoms: At their worst the symptoms were moderate, 14 day(s) ago, in the emergency department the symptoms are unchanged. 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 - Social history:: Smoking status: Patient/guardian denies using tobacco. ROS: 23:10 Constitutional: Negative for fever, chills, and weight loss, Eyes: Negative for injury, mh7 pain, redness, and discharge, ENT: Negative for injury, pain, and discharge, Neck: Negative for injury, pain, and swelling, Cardiovascular: Negative for chest pain, palpitations, and edema, Respiratory: Negative for shortness of breath, cough, wheezing, and pleuritic chest pain, Abdomen/GI: Negative for abdominal pain, nausea, vomiting, diarrhea, and constipation, Back: Negative for injury and pain, : Negative for injury, bleeding, discharge, and swelling, Skin: Negative for injury, rash, and discoloration, Neuro: Negative for headache, weakness, numbness, tingling, and seizure, Psych: Negative for depression, anxiety, suicide ideation, homicidal ideation, and hallucinations, Allergy/Immunology: Negative for hives, rash, and allergies, Endocrine: Negative for neck swelling, polydipsia, polyuria, polyphagia, and marked weight changes, Hematologic/Lymphatic: Negative for swollen nodes, abnormal bleeding, and unusual bruising. Exam: 23:10 Constitutional: This is a well developed, well nourished patient who is awake, alert, mh7 and in no acute distress. Head/Face: Normocephalic, atraumatic. Eyes: Pupils equal round and reactive to light, extra-ocular motions intact. Lids and lashes normal. Conjunctiva and sclera are non-icteric and not injected. Cornea within normal limits. Periorbital areas with no swelling, redness, or edema. Neck: Trachea midline, no thyromegaly or masses palpated, and no cervical lymphadenopathy. Supple, full range of motion without nuchal rigidity, or vertebral point tenderness. No Meningismus. Chest/axilla: Normal chest wall appearance and motion. Nontender with no deformity. No lesions are appreciated. Cardiovascular: Regular rate and rhythm with a normal S1 and S2. No gallops, murmurs, or rubs. Normal PMI, no JVD. No pulse deficits. Respiratory: Lungs have equal breath sounds bilaterally, clear to auscultation and percussion. No rales, rhonchi or wheezes noted. No increased work of breathing, no retractions or nasal flaring. Abdomen/GI: Soft, non-tender, with normal bowel sounds. No distension or tympany. No guarding or rebound. No evidence of tenderness throughout. Back: No spinal tenderness. No costovertebral tenderness. Full range of motion. Neuro: Awake and alert, GCS 15, oriented to person, place, time, and situation. Cranial nerves II-XII grossly intact. Motor strength 5/5 in all extremities. Sensory grossly intact. Cerebellar exam normal. Normal gait. Psych: Awake, alert, with orientation to person, place and time. Behavior, mood, and affect are within normal limits. 23:10 Skin: cellulitis, that is mild, irregular, on the left leg, induration, is not mh7 appreciated. 23:10 Musculoskeletal/extremity: Extremities: noted in the left leg: erythema, pain, mh7 tenderness, ROM: intact in all extremities, Circulation is intact in all extremities. Sensation intact. Compartment Syndrome exam of affected extremity: is normal. no numbness, no tingling, no sensation deficit, no palor, no weak pulses, Joints: All joints appear normal with full range of motion. Weight bearing: able to fully bear weight, without difficulty, Tendon exam: specific tendon testing normal through active and passive range of motion DVT Exam: negative Homans' sign noted on exam, no appreciated bluish discoloration, pain, that is mild, of the left leg, tenderness, that is mild, of the left leg, erythema, that is mild, of the left leg, increased warmth, that is mild, of the left leg, Calves: are tender, on left, are not equal in size: right is larger than left. Vital Signs: 23:12 BP 176 / 115; Pulse 96; Resp 18; Temp 98.9(O); Pulse Ox 100% on R/A; oe 07/26 00:00 BP 165 / 90; Pulse 90; Resp 18; Pulse Ox 97% on R/A; Pain 5/10; df1 01:30 BP 159 / 89; Pulse 91; Resp 18; Pulse Ox 100% on R/A; Pain 5/10; df1 02:38 BP 160 / 88; Pulse 92; Resp 18; Pulse Ox 100% on R/A; Pain 5/10; df1 MDM: 07/25 23:10 Differential diagnosis: contusion, abrasion, DVT, Cellulitis. Data reviewed: vital [facility] signs, nurses notes, old medical records, lab test result(s), CBC, electrolytes, radiologic studies, ultrasound. Data interpreted: Pulse oximetry: on room air is 100 %. Interpretation: normal. Counseling: I had a detailed discussion with the patient and/or guardian regarding: the historical points, exam findings, and any diagnostic results supporting the discharge/admit diagnosis, the presence of at least one elevated blood pressure reading (>120/80) during this emergency department visit, lab results, radiology results, the need for outpatient follow up, to return to the emergency department if symptoms worsen or persist or if there are any questions or concerns that arise at home. Response to treatment: the patient's symptoms have markedly improved after treatment. 07/26 02:16 Patient medically screened. [facility] 07/25 23:25 Order name: CBC with Diff [facility] 07/25 23:25 Order name: Basic Metabolic Panel [facility] 07/25 23:25 Order name: Protime (+inr) [facility] 07/25 23:25 Order name: Ptt, Activated [facility] 07/25 23:25 Order name: LFT's [facility] 07/25 23:25 Order name: CPK [facility] 07/25 23:22 Order name: US Extremity Venous Unilateral Ltd [facility] 07/25 23:26 Order name: CBC with Automated Diff; Complete Time: 01: EDMN 07/25 23:26 Order name: Basic Metabolic Panel; Complete Time: 01 EDMS 07/25 23:26 Order name: Protime (+INR); Complete Time: EDMS 07/25 23:26 Order name: PTT, Activated Partial Thromb; Complete Time: EDMN 07/25 23:26 Order name: Liver (Hepatic) Function; Complete Time: EDMN 07/25 23:26 Order name: Creatine Phosphokinase; Complete Time: EDMN 07/25 23:25 Order name: Saline Lock; Complete Time: 23:44 [facility] Administered Medications: 07/25 23:46 Drug: morphine 4 mg Route: IVP; Site: right antecubital; df1 23:46 Drug: Zofran (Ondansetron) 4 mg Route: IVP; Site: right antecubital; df1 07/26 02:15 Drug: Bactrim (trimethoprim-sulfamethoxazole) (160 mg-800 mg (DS) 1 tablet Route: PO; cc4 Disposition Summary: 07/26/21 02:16 Discharge Ordered Location: Home [facility] Problem: an ongoing problem [facility] Symptoms: have improved [facility] Condition: Stable [facility] Diagnosis - Cellulitis, Left Lower Extremity [facility] Followup: [facility] - With: Private Physician - When: 1 - 2 days - Reason: Worsening of condition, Recheck today's complaints, Continuance of care, Re-evaluation by your physician Discharge Instructions: - Discharge Summary Sheet [facility] - Cellulitis, Adult, [id number] [facility] Forms: - Medication Reconciliation Form [facility] - Thank You Letter [facility] - Antibiotic Education [facility] - Prescription Opioid Use [facility] Prescriptions: - Tramadol 50 mg Oral Tablet - take 1 tablet by ORAL route every 8 hours as needed; 12 tablet; Refills: 0, [facility] Product Selection Permitted - Bactrim DS 800-160 mg Oral Tablet - take 1 tablet by ORAL route every 12 hours for 10 days; 20 tablet; Refills: 0, [facility] Product Selection Permitted Signatures: Dispatcher [employer] Behzad Schafer MD MD [facility] Erica Martínez RN RN cc4 Irene Mcbride df1
[2021-07-26 02:55] VITALS: TEMP 98.9
[2021-07-26 03:08] VITALS: O2SAT 100
[2021-07-26 03:10] VITALS: BP 160/88
--- NOTE | 2021-07-26 08:18 | RAD REPORT ---
EXAM DESCRIPTION: US - Extremity Venous Uni Ltd - 07/26/2021 12:14 am CLINICAL HISTORY: Swelling pain COMPARISON: None. TECHNIQUE: Real-time sonographic evaluation of the left lower extremity deep venous system was perfo rmed. FINDINGS: Normal compressibility, flow augmentation, phasic flow and spontaneous flow is identified in the left lower extremity deep venous system. No intraluminal filling defects seen. IMPRESSION: No DVT in the left lower extremity.
== END 2021-07-26 02:43 | disposition home or self-care (01) ==
LOC: ER 22:53
DX: L03.116 Cellulitis of left lower limb (principal); I10 Essential (primary) hypertension; Z86.718 Personal history of other venous thrombosis and embolism; Z79.01 Long term (current) use of anticoagulants
CPT/HCPCS: 36415; 80048; 80076; 82550; 85025; 85610; 85730; 93971; 96374; 96375; 99284; J2405